=== PATIENT | male | born 1950 | race Caucasian/White ===

== ENCOUNTER 2019-02-20 15:25 | Emergency (ER) | payer MEDICARE, BC ==
--- NOTE | 2019-02-20 15:38 | ED ---
Chest Pain HPI - General Stated Complaint: Sob/chest tightness Time Seen by Provider: 02/20/19 15:30 Source: RN notes reviewed, old records reviewed - History of Present Illness Initial Comments: This is a 68-year-old male the ER for evaluation regarding blood pressure coming in for evaluation regards to chest pain. Chest pain shortness of breath episode of diaphoresis. Patient states he deathly started noticing symptoms last night that progressed into today and he was walking. Walking on especially make the symptoms worse. He has history of high blood pressure but no significant history of heart disease, stress test greater than 10 years ago. Patient has been throws ER stay without chest pain without swelling without shortness of breath. Patient denies significant current chest pain. Patient states he does feel mildly anxious to the symptoms. CBC playing golf yesterday without any difficulty. Patient didn't get infusion for his rheumatoid arthritis on Wednesday but never experienced any similar symptoms with prior infusion MD Complaint: chest pain -: days(s) Onset: during rest, during exertion Pain Location: substernal, left chest Pain Radiation: none Severity: mild Severity scale (1-10): 3 Quality: aching, heaviness Consistency: intermittent, now resolved Improves With: nothing Worsens With: exertion Anginal Symptoms: diaphoresis, dyspnea Treatments Prior to Arrival: none - Related Data Home Medications Medication Instructions Recorded Confirmed Allopurinol [Zyloprim] 300 mg PO DAILY 02/20/19 02/20/19 Folic Acid 1 mg PO DAILY 02/20/19 02/20/19 Methotrexate Sodium [Methotrexate] 25 mg PO TU 02/20/19 02/20/19 Methotrexate/Pf [Rasuvo 25 mg/0.5 25 mg SQ Q7D 02/20/19 02/20/19 ml Autoinj] Turmeric Root Extract [Turmeric] 500 mg PO BID 02/20/19 02/20/19 amLODIPine BESYLATE/BENAZEPRIL 1 cap PO DAILY 02/20/19 02/20/19 [amLODIPine BESYLATE/BENAZEPRIL 5-20 MG] predniSONE 10 mg PO DAILY 02/20/19 02/20/19 Allergies Allergy/AdvReac Type Severity Reaction Status Date / Time No Known Allergies Allergy Verified 02/20/19 16:17 Review of Systems ROS Statement: Those systems with pertinent positive or pertinent negative responses have been documented in the HPI. ROS Other: All systems not noted in ROS Statement are negative. EKG Findings - EKG Comments: EKG Findings:: EKG shows sinus rhythm rate of 84, WA 150, QRS 108, QTc 427 Past Medical History Past Medical History: Hypertension History of Any Multi-Drug Resistant Organisms: None Reported Additional Past Surgical History / Comment(s): knee Past Psychological History: No Psychological Hx Reported Smoking Status: Never smoker Past Alcohol Use History: Occasional Past Drug Use History: None Reported General Exam General appearance: alert, in no apparent distress, anxious Head exam: Present: atraumatic, normocephalic, normal inspection Eye exam: Present: normal appearance, PERRL, EOMI. Absent: scleral icterus, conjunctival injection, periorbital swelling ENT exam: Present: normal exam, mucous membranes moist Neck exam: Present: normal inspection. Absent: tenderness, meningismus, lymphadenopathy Respiratory exam: Present: normal lung sounds bilaterally. Absent: respiratory distress, wheezes, rales, rhonchi, stridor Cardiovascular Exam: Present: regular rate, normal rhythm, normal heart sounds. Absent: systolic murmur, diastolic murmur, rubs, gallop, clicks GI/Abdominal exam: Present: soft, normal bowel sounds. Absent: distended, tenderness, guarding, rebound, rigid Extremities exam: Present: normal inspection, full ROM, normal capillary refill. Absent: tenderness, pedal edema, joint swelling, calf tenderness Back exam: Present: normal inspection Neurological exam: Present: alert, oriented X3, CN II-XII intact Psychiatric exam: Present: normal affect, normal mood Skin exam: Present: warm, dry, intact, normal color. 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 ] Respiratory 26 H 18 15 Rate Blood Pressure 119/81 124/89 O2 Sat by Pulse 96 Oximetry 02/20/19 02/20/19 02/20/19 16:30 17:00 17:30 Temperature Pulse Rate 81 78 82 Pulse Rate [ Washhouse Worker ] Respiratory 18 20 16 Rate Blood Pressure 135/92 126/87 124/79 O2 Sat by Pulse 95 94 L 97 Oximetry - Reevaluation(s) Reevaluation #1: 02/20/19 17:44 Medical records reviewed Reevaluation #2: 02/20/19 17:44 She remains asymptomatic without any chest pain or shortness of breath here in the ER Reevaluation #3: 02/20/19 17:44 The patient at length regarding normal findings, normal troponin with pain greater than one day, normal EKG. 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 No history of heart disease does have history of high blood pressure. Patient states chest pain is resolved throat ER stay did submit mild anxiety attack. He feels good feels well essay he would like discharge home Disposition Clinical Impression: Chest pain Disposition: HOME SELF-CARE Condition: Undetermined Instructions (If sedation given, give patient instructions): Chest Pain (ED) Is patient prescribed a controlled substance at d/c from ED?: No Referrals: Edwardo Pollard MD [Primary Care Provider] - 1-2 days
[2019-02-20] MEDS ORDERED: SODIUM CHLORIDE 0.9% 1,000 ML IV STA (16:08)
[2019-02-20 16:23] LABS: Basophils # (A) 0.1 k/uL (0-0.2); Basophils % (A) 1 %; Eosinophils # (A) 0.1 k/uL (0-0.7); Eosinophils % (A) 1 %; HCT 48.7 % (39.0-53.0); HGB 15.8 gm/dL (13.0-17.5); Lymphocytes # (A) 2.2 k/uL (1.0-4.8); Lymphocytes % (A) 27 %; MCH 31.6 pg (25.0-35.0); MCHC 32.4 g/dL (31.0-37.0); MCV 97.3 fL (80.0-100.0); Mean Platelet Volume 8.1; Monocytes # (A) 0.4 k/uL (0-1.0); Monocytes % (A) 4 %; Neutrophils # (A) 5.5 k/uL (1.3-7.7); Neutrophils % (A) 66 %; Platelet Count 219 k/uL (150-450); RBC 5.01 m/uL (4.30-5.90); RDW 14.4 % (11.5-15.5); WBC 8.3 k/uL (3.8-10.6)
--- NOTE | 2019-02-20 16:28 | XR ---
EXAMINATION TYPE: XR chest 2V DATE OF EXAM: 02/20/2019 COMPARISON: Chest x-ray November 22, 2013. HISTORY: Chest pain and tightness. Shortness of breath. TECHNIQUE: Frontal and lateral views of the chest are obtained. FINDINGS: There is chronic parenchymal changes without suspicious focal air space opacity, pleural e ffusion, or pneumothorax seen. The cardiac silhouette size remains upper limits of normal with ather osclerotic and ectatic aorta. The osseous structures are intact. IMPRESSION: No acute cardiopulmonary process. No significant change from prior.
[2019-02-20 16:34] LABS: ALT 45 U/L (21-72); AST 30 U/L (17-59); African American GFR (CKD) >90 (>60 ml/min/1.73 sqM); Albumin 4.1 g/dL (3.5-5.0); Alkaline Phosphatase 86 U/L (38-126); Anion Gap 10 mmol/L; Blood Urea Nitrogen 23 mg/dL (9-20); Calcium 9.4 mg/dL (8.4-10.2); Carbon Dioxide 19 mmol/L (22-30); Chloride 111 mmol/L (98-107); Creatine Kinase 84 U/L (55-170); Glucose 156 mg/dL (74-99); Magnesium 2.1 mg/dL (1.6-2.3); Potassium 4.5 mmol/L (3.5-5.1); Sodium 140 mmol/L (137-145); Total Bilirubin 0.6 mg/dL (0.2-1.3); Total Protein 6.9 g/dL (6.3-8.2)
[2019-02-20 16:49] LABS: D-Dimer 0.31 mg/L FEU (<0.60); INR 0.9 (<1.2); Partial Thromboplastin Time 25.1 sec (22.0-30.0); Prothrombin Time 10.1 sec (9.0-12.0)
[2019-02-20 17:39] VITALS: RESP 16
[2019-02-20 18:34] VITALS: BP 126/80; PULSE 81; TEMP 98.2
== END 2019-02-20 18:33 | disposition home or self-care (01) ==
LOC: EC 15:25
DX: R07.89 Other chest pain (principal); R06.02 Shortness of breath; R61 Generalized hyperhidrosis; I10 Essential (primary) hypertension; M06.9 Rheumatoid arthritis, unspecified; Z79.52 Long term (current) use of systemic steroids; Z79.899 Other long term (current) drug therapy; Z53.20 Procedure and treatment not carried out because of patient's decision for unspecified reasons
CPT/HCPCS: 36415; 71046; 80053; 82550; 83690; 83735; 83880; 84484; 85025; 85379; 85610; 85730; 93005; 99285

== ENCOUNTER → 2019-03-17 | Outpatient (CLI) | payer MEDICARE, BC ==
--- NOTE | 2019-03-17 11:36 | ECHOS ---
STRESS ECHOCARDIOGRAM INDICATIONS: Hypertension BASELINE HEART RATE: 67 BASELINE BLOOD PRESSURE: 101/76 MAXIMUM HEART RATE: 136 MAXIMUM BLOOD PRESSURE: 174/55 85% MPHR: 128 100% MPHR: 150 METS: 9.7 MAXIMUM STAGE REACHED: 3 TOTAL EXERCISE TIME: 8:00 CLINICAL INFORMATION: Baseline EKG revealed sinus mechanism with isolated PVCs. Patient walked on standard Lambert protocol for 8 minutes, achieved a maximal heart rate of 136 beats per minute which is more than 85% of predicted maximal. He developed fatigue and shortness of breath but did not have any angina or arrhythmia. EKG did not reveal any ST-segment changes to indicate ischemia by EKG. The ventricular ectopy that was noted at rest disappeared with exercise. By EKG criteria, this is a negative stress test with fair exercise capacity. Baseline echo images revealed normal wall motion and wall thickening of all segments. Echo contrast Lumason was used to improve the quality of images. At peak exercise there was augmentation of different wall motion and wall thickening of all segments suggesting that there is no evidence of stress-induced ischemia on this study. IMPRESSION: 1. Fair exercise capacity with a negative stress test by EKG criteria without symptoms of angina or arrhythmia. Isolated premature ventricular contractions were noted at rest and reappeared in recovery but disappeared with exercise. 2. Normal stress echocardiogram. MMODL / IJN: [id number] /
== END | disposition home or self-care (01) ==
LOC: RADNMMAIN 09:00
PROVIDERS: ATTEND Internal Medicine
DX: R06.00 Dyspnea, unspecified (principal)
CPT/HCPCS: 93351; Q9950

== ENCOUNTER → 2019-10-13 | Outpatient (CLI) | payer MEDICARE, BC | END | disposition home or self-care (01) | LOC: LABWHC1 09:43 | PROVIDERS: ATTEND Internal Medicine | DX: R05 Cough (principal) ==

== ENCOUNTER → 2019-10-30 | Outpatient (CLI) | payer MEDICARE, BC ==
--- NOTE | 2019-10-30 15:26 | XR ---
EXAMINATION TYPE: XR chest 2V DATE OF EXAM: 10/30/2019 COMPARISON: 02/20/2019 HISTORY: 69-year-old male R05, cough TECHNIQUE: Frontal and lateral views FINDINGS: Heart normal size. Aorta and pulmonary vasculature within normal limits. Small right pleural effusion with patchy right basilar opacity is new. IMPRESSION: New small right pleural effusion with adjacent right basilar atelectasis versus infiltrate. Pneumonia with adjacent parapneumonic effusion not excluded.
== END | disposition home or self-care (01) ==
LOC: RADXRMAIN 14:29
PROVIDERS: ATTEND Internal Medicine
DX: R05 Cough (principal)
CPT/HCPCS: 71046

== ENCOUNTER → 2019-11-14 | Outpatient (CLI) | payer MEDICARE, BC ==
--- NOTE | 2019-11-14 15:35 | XR ---
EXAMINATION TYPE: XR chest special 3 views DATE OF EXAM: 11/14/2019 HISTORY: Shortness of breath. COMPARISON: None. TECHNIQUE: Single upright and decubitus views are submitted. FINDINGS: Moderate predominantly loculated right-sided pleural effusion noted. Layering component however is no jose l. Chronic elevation right hemidiaphragm. The heart is stable. Hilar and mediastinal structures are within normal limits. Degenerative changes are seen of the dorsal spine. IMPRESSION: 1. Moderate predominantly loculated right-sided pleural effusion noted. Layering component however i s noted. Chronic elevation right hemidiaphragm.
== END | disposition home or self-care (01) ==
LOC: RADXRMAIN 15:00
PROVIDERS: ATTEND Internal Medicine
DX: J90 Pleural effusion, not elsewhere classified (principal); J98.6 Disorders of diaphragm
CPT/HCPCS: 71047

== ENCOUNTER → 2019-11-15 | Outpatient (CLI) | payer MEDICARE, BC ==
[2019-11-15 13:09] LABS: HCT 46.5 % (39.0-53.0); HGB 14.4 gm/dL (13.0-17.5); MCH 28.9 pg (25.0-35.0); MCHC 30.9 g/dL (31.0-37.0); MCV 93.6 fL (80.0-100.0); Platelet Count 221 k/uL (150-450); RBC 4.97 m/uL (4.30-5.90); RDW 14.1 % (11.5-15.5); WBC 4.2 k/uL (3.8-10.6)
[2019-11-15 13:44] LABS: ALT 27 U/L (4-49); AST 55 U/L (17-59); African American GFR (CKD) >90 (>60 ml/min/1.73 sqM); Albumin 3.3 g/dL (3.5-5.0); Alkaline Phosphatase 319 U/L (38-126); Anion Gap 8 mmol/L; Blood Urea Nitrogen 17 mg/dL (9-20); Calcium 8.6 mg/dL (8.4-10.2); Carbon Dioxide 21 mmol/L (22-30); Chloride 105 mmol/L (98-107); Glucose 103 mg/dL (74-99); Non-African American GFR(CKD) 82 (>60 ml/min/1.73 sqM); Potassium 4.4 mmol/L (3.5-5.1); Sodium 134 mmol/L (137-145); Total Bilirubin 1.5 mg/dL (0.2-1.3); Total Protein 6.7 g/dL (6.3-8.2)
--- NOTE | 2019-11-15 15:29 | CT ---
EXAMINATION TYPE: CT abdomen pelvis w con DATE OF EXAM: 11/15/2019 COMPARISON: Chest x-ray 11/14/2019 HISTORY: Continued fluid collection in Abdomen, ascites, pleural effusion CT DLP: 1861.6 mGycm Automated exposure control for dose reduction was used. TECHNIQUE: Helical acquisition of images from the lung bases through the pelvis have been completed. CONTRAST: Performed with Oral Contrast and with IV Contrast, patient injected with 100 mL of Isovue 300. FINDINGS: LUNG BASES: Sizable right pleural effusion is present, there is associated atelectatic change suspect ed at the right lung base. There are air bronchograms, correlate to exclude pneumonia.. AORTA: No significant abnormality is appreciated. LIVER/GB: The liver is enlarged with a somewhat nodular contour. Gallbladder is contracted PANCREAS: No significant abnormality is seen. SPLEEN: No significant abnormality is seen. ADRENALS: No significant abnormality is seen. KIDNEYS: Bilateral parapelvic cysts are present. Perinephric fluid may be indicative of renal failure .. REPRODUCTIVE ORGANS: Prostate shows some associated calcification BOWEL: Diverticular changes present associated with the sigmoid colon, there is no bowel obstruction .. FREE AIR: No Free Air visible. ASCITES: Mild amount of ascites is present. PELVIC ADENOPATHY: None visualized. RETROPERITONEAL ADENOPATHY: There are retroperitoneal nodes about the aorta, at axial image 41, sophie nal image 67 and noted immediately anterior to the aorta shows a short axis measurement of 2 cm.. URINARY BLADDER: No significant abnormality is seen. OSSEOUS STRUCTURES: No significant abnormality is seen. IMPRESSION: CORRELATE FOR CIRRHOSIS. ASCITES AND RIGHT PLEURAL EFFUSION. RETROPERITONEAL ADENOPATHY. CORRELATE FO R POSSIBLE RENAL FAILURE.
== END | disposition home or self-care (01) ==
LOC: RADCTMAIN 12:29
PROVIDERS: ATTEND Internal Medicine
DX: J90 Pleural effusion, not elsewhere classified (principal); R18.8 Other ascites; R59.0 Localized enlarged lymph nodes
CPT/HCPCS: 80053; 85027; 74177; 36415; Q9967

== ENCOUNTER 2019-11-27 08:36 | Day surgery (SDC) | payer MEDICARE, BC ==
[2019-11-27 09:18] LABS: Mean Platelet Volume 8.9; Platelet Count 168 k/uL (150-450)
[2019-11-27 09:24] VITALS: TEMP 97.9
[2019-11-27 09:27] LABS: INR 1.2 (<1.2); Prothrombin Time 12.4 sec (9.0-12.0)
[2019-11-27 10:59] VITALS: BP 112/74; PULSE 104; RESP 16
--- NOTE | 2019-11-27 11:02 | P.PCN ---
Date of Procedure: 11/27/19 Preoperative Diagnosis: right pleural effusion Postoperative Diagnosis: right pleural effusion Procedure(s) Performed: ultrasound guided right thoracentesis Anesthesia: local Surgeon: Gaby Silva Estimated Blood Loss (ml): 0 Pathology: other (cytology, chemistrsy, cultures) Condition: stable Disposition: same day Operative Findings: large volume right pleural effusion, 1800 cc clear serous fluid removed. moderate residual effusion post procedure.
--- NOTE | 2019-11-27 11:06 | XR ---
EXAMINATION TYPE: XR chest 1V DATE OF EXAM: 11/27/2019 HISTORY: Status post right-sided thoracentesis. COMPARISON: 10/30/2019 TECHNIQUE: Single view of the chest is submitted. FINDINGS: No evidence for pneumothorax in a patient who is status post thoracentesis. Continued large right-ihsan ed pleural effusion and underlying atelectasis and/or infiltrate. There is no evidence for focal infiltrate. The heart is stable. Hilar and mediastinal structures are within normal limits. Degenerative changes are seen of the dorsal spine. IMPRESSION: 1. No evidence for pneumothorax in a patient who is status post thoracentesis. Continued large right -sided pleural effusion and underlying atelectasis and/or infiltrate.
[2019-11-27 15:15] LABS: Appearance,BF Hazy; Color,BF Yellow; Nucleated Cells, Body Fluid 255 /uL; RBC, Body Fluid 2525 /uL
[2019-11-27 15:18] LABS: Mononuclear WBC,Body Fluid 92 %; Polynuclear WBC,Body Fluid 8 %; Total Cells Counted,Body Fluid 100
--- NOTE | 2019-11-27 15:42 | US ---
EXAMINATION TYPE: US thoracentesis DATE OF EXAM: 11/27/2019 COMPARISON: CT abdomen pelvis 11/15/2019 HISTORY: Right pleural effusion. FINDINGS: Maximal barrier technique was utilized. The skin overlying a suitable pocket of fluid was localized and the overlying skin prepped and draped. Lidocaine was used for local anesthesia. Ultras ound was used for site marking. A 5 Fijian 7 cm centesis catheter with syringe was advanced into the pleural fluid collection until flash of pleural fluid was visualized. Approximately 1.8 liter(s) of serous fluid was removed. Catheter was withdrawn and hemostasis achieved. There is no immediate co mplication. The patient discharged in stable condition without complication. IMPRESSION: STATUS POST ULTRASOUND GUIDED THORACENTESIS, POST PROCEDURE CHEST X-RAY PENDING. THIS [place] OCEDURE WAS PERFORMED BY THE UNDERSIGNED.
[2019-11-27 20:51] LABS: Amylase, Fluid Source Pleural Fluid; Glucose, BF Source Pleural Fluid; Glucose, Body Fluid 102 mg/dL; LDH, Body Fluid Source Pleural Fluid; Total Protein, Body Fluid 4000 mg/dL
== END 2019-11-27 11:25 | disposition home or self-care (01) ==
LOC: RADPROMAIN 08:36
PROVIDERS: ATTEND Internal Medicine
DX: J90 Pleural effusion, not elsewhere classified (principal)
CPT/HCPCS: 32555; 36415; 71045; 82150; 82945; 83615; 84157; 85049; 85610; 87070; 87075; 87102; 87116; 87205; 87206; 88108; 88305; 89050

== ENCOUNTER 2019-12-19 08:49 | Day surgery (SDC) | payer MEDICARE, BC ==
[2019-12-19 09:29] LABS: Mean Platelet Volume 8.5; Platelet Count 155 k/uL (150-450)
[2019-12-19 09:38] LABS: INR 1.2 (<1.2); Prothrombin Time 12.4 sec (9.0-12.0)
[2019-12-19 09:41] VITALS: TEMP 97.3
[2019-12-19 10:18] VITALS: RESP 18
--- NOTE | 2019-12-19 11:12 | XR ---
EXAMINATION TYPE: XR chest 1V portable DATE OF EXAM: 12/19/2019 HISTORY: status post right thoracentesis COMPARISON: 11/27/2019 TECHNIQUE: Single view of the chest is submitted. FINDINGS: Demonstrated are scattered senescent parenchymal change. Right lower lobe infiltrate and/or atelectasis with pleural effusion. No evidence for pneumothorax st atus post thoracentesis. The heart is stable. Hilar and mediastinal structures are within normal limits. Degenerative changes are seen of the dorsal spine. IMPRESSION: 1. No evidence for pneumothorax status post thoracentesis.
[2019-12-19 11:53] VITALS: BP 119/76; PULSE 101
[2019-12-19 15:10] LABS: Appearance,BF Cloudy; Color,BF Yellow; Nucleated Cells, Body Fluid 275 /uL; RBC, Body Fluid 3445 /uL
[2019-12-19 15:19] LABS: Mononuclear WBC,Body Fluid 95 %; Polynuclear WBC,Body Fluid 4 %; Total Cells Counted,Body Fluid 100
--- NOTE | 2019-12-19 16:49 | US ---
EXAMINATION TYPE: US thoracentesis DATE OF EXAM: 12/19/2019 COMPARISON: Ultrasound thoracentesis 11/27/2019 HISTORY: Pleural effusion. NON CATEGORICAL PRESCHOOL TEACHER: Dr. Gaby Silva PROCEDURE: The procedure was discussed with the patient. The risks, complications, benefits, and alternatives we re discussed and any questions were answered. Informed consent was obtained. Preprocedure preliminary imaging demonstrated large volume right pleural effusion. Maximal barrier technique was utilized. The skin overlying a suitable pocket of fluid of the right ch est was localized and the overlying skin prepped and draped. Lidocaine was used for local anesthesia. Ultrasound was used with sterile technique. A 5FR 7 cm one-step centesis catheter was advanced into the pleural fluid collection using ultrasound guidance. Approximately 2.6 liter(s) of serous fluid wa s removed. Catheter was withdrawn and hemostasis achieved. A sterile bandage was applied. Postprocedure imaging demonstrated moderate residual pleural effusion. There is no immediate complica tion. The patient was discharged in stable condition without complication. IMPRESSION: 1. Status post ultrasound-guided right thoracentesis, with removal of 2.6 L of clear serous fluid. 2. Moderate residual right pleural effusion after thoracentesis. Patient may benefit from repeat thor acentesis procedure. 3. Postprocedure chest x-ray pending.
[2019-12-19 20:53] LABS: LDH, Body Fluid Source Pleural Fluid; Total Protein, Body Fluid 4100 mg/dL
== END 2019-12-19 11:35 | disposition home or self-care (01) ==
LOC: RADPROMAIN 08:49
PROVIDERS: ATTEND Internal Medicine
DX: J90 Pleural effusion, not elsewhere classified (principal)
CPT/HCPCS: 32555; 36415; 71045; 83615; 84157; 85049; 85610; 88108; 88305; 89050

== ENCOUNTER → 2019-12-22 | Outpatient (CLI) | payer MEDICARE, BC ==
--- NOTE | 2019-12-22 12:00 | ECHOF ---
Referral Reason:I10 hypertension, J90 pleural effusion MEASUREMENTS -------- HEIGHT: 170.2 cm WEIGHT: 92.1 kg BP: RVIDd: 3.8 cm (< 3.3) IVSd: 1.2 cm (0.6 - 1.1) LVIDd: 3.1 cm (3.9 - 5.3) LVPWd: 1.5 cm (0.6 - 1.1) IVSs: 1.8 cm LVIDs: 1.5 cm LVPWs: 1.8 cm LAESV Index (A-L): 20.70 ml/m Ao Diam: 3.1 cm (2.0 - 3.7) AV Cusp: 1.9 cm (1.5 - 2.6) MV E Alex: 0.75 m/s MV DecT: 81 ms MV A Alex: 1.08 m/s MV E/A Ratio: 0.70 RAP: 5.00 mmHg RVSP: 49.34 mmHg FINDINGS -------- Resting tachycardia (HR>100bpm). This was a technically adequate study. The left ventricular size is normal. There is moderate concentric left ventricular hypertrophy. O verall left ventricular systolic function is normal with, an EF between 60 - 65 %. The right ventricle is mild to moderately enlarged. Normal LA size by volume 22+/-6 ml/m2. The right atrial size is normal. Interatrial and interventricular septum intact. The aortic valve is trileaflet and appears structurally normal. There is no evidence of aortic regu rgitation. There is no evidence of aortic stenosis. No mitral regurgitation. [id number] tricuspid regurgitation present. There is mild to moderate pulmonary hypertension. The right ventricular systolic pressure, as measured by Doppler, is 49.34mmHg. There is no pulmonic regurgitation present. The aortic root size is normal. Normal inferior vena cava with normal inspiratory collapse consistent with estimated right atrial pre ssure of 5 mmHg. There is no pericardial effusion. CONCLUSIONS -------- 1. The left ventricular size is normal. 2. There is moderate concentric left ventricular hypertrophy. 3. Overall left ventricular systolic function is normal with, an EF between 60 - 65 %. 4. The right ventricle is mild to moderately enlarged. 5. [id number] tricuspid regurgitation present. 6. There is mild to moderate pulmonary hypertension. [employer]ATION ATTENDANT: aKrma Redd RDCS
== END | disposition home or self-care (01) ==
LOC: RADECHMAIN 10:27
PROVIDERS: ATTEND Internal Medicine
DX: I07.1 Rheumatic tricuspid insufficiency (principal); I27.20 Pulmonary hypertension, unspecified; J90 Pleural effusion, not elsewhere classified
CPT/HCPCS: 93306

== ENCOUNTER 2020-01-03 08:53 | Day surgery (SDC) | payer MEDICARE, BC ==
[2020-01-03 09:21] LABS: Mean Platelet Volume 8.4; Platelet Count 200 k/uL (150-450)
[2020-01-03 09:30] LABS: INR 1.2 (<1.2); Prothrombin Time 12.1 sec (9.0-12.0)
[2020-01-03 10:00] VITALS: RESP 18; TEMP 98.2
--- NOTE | 2020-01-03 10:41 | US ---
Ultrasound-guided therapeutic and diagnostic thoracentesis DATE OF EXAM: 01/03/2020 CLINICAL HISTORY: Pleural effusion The procedure was discussed with the patient. The risks, complications, benefits, and alternatives we re discussed and any questions were answered. Informed consent was obtained. The patient was placed supine on the ultrasound table and prepped and draped in the usual sterile fas hion. All elements of maximal barrier and sterile technique were utilized. Under ultrasound guidance, access into the pleural space was obtained, via the thoracentesis catheter system and direct ultrasound guidance. Ap proximately 2.5 liters of serous fluid was removed. The patient was stable throughout the procedure and remained stable upon discharge from Department of Radiology. IMPRESSION: 1. Successful therapeutic and diagnostic thoracentesis under ultrasound guidance.
--- NOTE | 2020-01-03 10:52 | XR ---
EXAMINATION TYPE: XR chest 1V portable DATE OF EXAM: 01/03/2020 COMPARISON: 12/19/2019 HISTORY: Post right thoracentesis TECHNIQUE: Single frontal view of the chest is obtained. FINDINGS: Interval significant improvement in the amount of fluid on the right. There is persistent consolidation likely on the basis of compressive atelectasis. Reduced inspiration is noted. No sizabl e pneumothorax. Heart size normal. IMPRESSION: 1. No pneumothorax postthoracentesis.
[2020-01-03 11:53] VITALS: BP 130/76; PULSE 109
== END 2020-01-03 11:20 | disposition home or self-care (01) ==
LOC: RADPROMAIN 08:53
PROVIDERS: ATTEND Internal Medicine
DX: J90 Pleural effusion, not elsewhere classified (principal)
CPT/HCPCS: 32555; 36415; 71045; 85049; 85610

== ENCOUNTER 2020-01-08 09:44 | Day surgery (SDC) | payer MEDICARE, BC ==
[2020-01-08 10:16] VITALS: TEMP 97.1
[2020-01-08 11:42] VITALS: RESP 16
--- NOTE | 2020-01-08 12:19 | XR ---
EXAMINATION TYPE: XR chest 1V DATE OF EXAM: 01/08/2020 CLINICAL HISTORY: Status post right thoracentesis. Right pleural effusion. TECHNIQUE: Frontal view of the chest obtained. COMPARISON: 01/03/2020 chest radiograph. FINDINGS: The cardiomediastinal silhouette is within normal limits for size. Pulmonary vasculature i s normal. No significant residual pleural effusion. There is a mild amount of pleural fluid tracking within the minor fissure. No pneumothorax. The osseous structures are intact. IMPRESSION: No significant residual pleural effusion status post right thoracentesis. No pneumothorax .
[2020-01-08 12:39] VITALS: BP 123/88; PULSE 106
--- NOTE | 2020-01-09 08:43 | US ---
EXAMINATION TYPE: US thoracentesis DATE OF EXAM: 01/08/2020 COMPARISON: Chest radiograph 01/03/2020 HISTORY: Pleural effusion. 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 Gaby Silva PROCEDURE: The procedure was discussed with the patient. The risks, complications, benefits, and alternatives we re discussed and any questions were answered. Informed consent was obtained. Preprocedure preliminary imaging demonstrated large right pleural effusion. Maximal barrier technique was utilized. The skin overlying a suitable pocket of fluid of the right ch est was localized and the overlying skin prepped and draped. Lidocaine was used for local anesthesia. Ultrasound was used with sterile technique. A 5FR 10 cm one-step centesis catheter was advanced into the pleural fluid collection using ultrasound guidance. Approximately 1.75 liter(s) of serous fluid was removed. Catheter was withdrawn and hemostasis achieved. A sterile bandage was applied. Postprocedure imaging demonstrated no significant residual pleural effusion. There is no immediate co mplication. The patient was discharged in stable condition without complication. IMPRESSION: 1. Status post ultrasound-guided right thoracentesis, with removal of 1.75 L of clear serous fluid. N o significant residual pleural effusion status post procedure. 2. Postprocedure chest x-ray pending.
== END 2020-01-08 12:35 | disposition home or self-care (01) ==
LOC: RADPROMAIN 09:44
PROVIDERS: ATTEND Internal Medicine
DX: J90 Pleural effusion, not elsewhere classified (principal)
CPT/HCPCS: 32555; 71045

== ENCOUNTER 2020-01-23 07:37 | Day surgery (SDC) | payer MEDICARE, BC ==
[2020-01-23 08:27] VITALS: RESP 16; TEMP 97.9
[2020-01-23 08:59] LABS: Mean Platelet Volume 8.2; Platelet Count 191 k/uL (150-450)
[2020-01-23 09:13] LABS: INR 1.1 (<1.2); Prothrombin Time 11.4 sec (9.0-12.0)
[2020-01-23 10:12] VITALS: BP 118/75; PULSE 95
--- NOTE | 2020-01-23 10:43 | XR ---
EXAMINATION TYPE: XR chest 1V DATE OF EXAM: 01/23/2020 COMPARISON: Chest x-ray January 08, 2020. HISTORY: Right-sided thoracentesis. TECHNIQUE: Single frontal view of the chest is obtained. FINDINGS: There is no pneumothorax after right-sided thoracentesis. Persistent low lung volumes. Int erval resolution of right lower lung linear atelectasis or trapped pleural fluid or acute The cardiac silhouette size remains within normal limits. The osseous structures are intact. IMPRESSION: No pneumothorax after right-sided thoracentesis.
--- NOTE | 2020-01-23 17:59 | US ---
EXAMINATION TYPE: US thoracentesis DATE OF EXAM: 01/23/2020 COMPARISON: Ultrasound thoracentesis 01/08/2020 HISTORY: Pleural effusion. CUPOLA REPAIRER: Dr. Gaby Silva PROCEDURE: The procedure was discussed with the patient. The risks, complications, benefits, and alternatives we re discussed and any questions were answered. Informed consent was obtained. Preprocedure preliminary imaging demonstrated moderate right pleural effusion. Maximal barrier technique was utilized. The skin overlying a suitable pocket of fluid of the right ch est was localized and the overlying skin prepped and draped. Lidocaine was used for local anesthesia. Ultrasound was used with sterile technique. A 5FR 7 cm ons-step centesis catheter was advanced into the pleural fluid collection using ultrasound guidance. Approximately 1.7 liter(s) of serous fluid wa s removed. Catheter was withdrawn and hemostasis achieved. A sterile bandage was applied. There is no immediate complication. The patient was discharged in stable condition without complicati on. IMPRESSION: 1. Status post ultrasound-guided right thoracentesis, with removal of 1.7 L of clear serous fluid. 2. Postprocedure chest x-ray pending.
== END 2020-01-23 10:45 | disposition home or self-care (01) ==
LOC: RADPROMAIN 07:37
PROVIDERS: ATTEND Internal Medicine
DX: J90 Pleural effusion, not elsewhere classified (principal)
CPT/HCPCS: 32555; 36415; 71045; 85049; 85610

== ENCOUNTER 2020-02-06 07:44 | Day surgery (SDC) | payer MEDICARE, BC ==
[2020-02-06 08:31] VITALS: TEMP 97.7
[2020-02-06 08:35] LABS: Mean Platelet Volume 7.6; Platelet Count 205 k/uL (150-450)
[2020-02-06 08:46] LABS: INR 1.1 (<1.2)
[2020-02-06 10:00] VITALS: RESP 16
--- NOTE | 2020-02-06 10:53 | XR ---
EXAMINATION TYPE: XR chest 1V DATE OF EXAM: 02/06/2020 COMPARISON: 01/23/2020 INDICATION: Postthoracentesis right side TECHNIQUE: Single frontal view of the chest is obtained. FINDINGS: The heart size is normal. The pulmonary vasculature is normal. Mild infiltrate is in the right lower lung field may be some residual atelectasis. No significant eff usion is evident. No pneumothorax is evident. IMPRESSION: 1. Mild infiltrate is in the right infrahilar region may be some residual atelectasis 2. No pneumothorax post thoracentesis right side
[2020-02-06 11:07] VITALS: BP 122/74; PULSE 81
--- NOTE | 2020-02-06 13:33 | US ---
EXAMINATION TYPE: US thoracentesis DATE OF EXAM: 02/06/2020 COMPARISON: NONE HISTORY: Pleural effusion. FINDINGS: Maximal barrier technique was utilized. The skin overlying a suitable pocket of fluid was localized and the overlying skin prepped and draped. Lidocaine was used for local anesthesia. Ultras ound was used with sterile technique. A 5 Sami catheter over guide needle was advanced into the pl eural fluid collection using ultrasound guidance and the catheter advanced, needle removed. Approxim ately 2.3 liter(s) of serous fluid was removed. Catheter was withdrawn and hemostasis achieved. The re is no immediate complication. The patient discharged in stable condition without complication. IMPRESSION: STATUS POST ULTRASOUND GUIDED THORACENTESIS, POST PROCEDURE CHEST X-RAY PENDING. THIS [place] OCEDURE WAS PERFORMED BY THE UNDERSIGNED.
== END 2020-02-06 10:35 | disposition home or self-care (01) ==
LOC: RADPROMAIN 07:44
PROVIDERS: ATTEND Internal Medicine
DX: J90 Pleural effusion, not elsewhere classified (principal); R91.8 Other nonspecific abnormal finding of lung field
CPT/HCPCS: 32555; 36415; 71045; 85049; 85610

== ENCOUNTER 2020-02-20 08:45 | Day surgery (SDC) | payer MEDICARE, BC ==
[2020-02-20 09:10] VITALS: RESP 16; TEMP 97.6
[2020-02-20 09:40] LABS: Mean Platelet Volume 7.4; Platelet Count 169 k/uL (150-450)
[2020-02-20 09:45] LABS: INR 1.1 (<1.2); Prothrombin Time 11.3 sec (9.0-12.0)
[2020-02-20 10:24] VITALS: BP 132/82; PULSE 82
--- NOTE | 2020-02-20 10:52 | XR ---
EXAMINATION TYPE: XR chest 1V portable DATE OF EXAM: 02/20/2020 COMPARISON: Right-sided x-ray 4 days ago HISTORY: Right-sided thoracentesis TECHNIQUE: Single frontal view of the chest is obtained. FINDINGS: There is improved right-sided pleural effusion after right-sided thoracentesis. No pneumot horax. No mediastinal shift. Left lung remains clear. The cardiac silhouette size remains within norm al limits. There is atherosclerotic and ectatic thoracic aorta. The osseous structures are intact. IMPRESSION: No right-sided pneumothorax after thoracentesis.
--- NOTE | 2020-02-20 11:43 | US ---
Ultrasound-guided therapeutic and diagnostic thoracentesis DATE OF EXAM: 02/20/2020 CLINICAL HISTORY: Right pleural effusion The procedure was discussed with the patient. The risks, complications, benefits, and alternatives we re discussed and any questions were answered. Informed consent was obtained. The patient was placed supine on the ultrasound table and prepped and draped in the usual sterile fas hion. All elements of maximal barrier and sterile technique were utilized. Under ultrasound guidance, access into the pleural space was obtained, via the thoracentesis catheter system and direct ultrasound guidance. Ap proximately 1.2 liters of serous fluid was removed. The patient was stable throughout the procedure and remained stable upon discharge from Department of Radiology. IMPRESSION: 1. Successful therapeutic and diagnostic thoracentesis under ultrasound guidance.
== END 2020-02-20 10:45 | disposition home or self-care (01) ==
LOC: RADPROMAIN 08:45
PROVIDERS: ATTEND Internal Medicine
DX: J90 Pleural effusion, not elsewhere classified (principal)
CPT/HCPCS: 32555; 36415; 71045; 85049; 85610

== ENCOUNTER → 2020-02-28 | Outpatient (CLI) | payer MEDICARE, BC ==
[2020-02-28 10:14] LABS: African American GFR (CKD) >90 (>60 ml/min/1.73 sqM); Blood Urea Nitrogen 29 mg/dL (9-20); Non-African American GFR(CKD) 86 (>60 ml/min/1.73 sqM)
--- NOTE | 2020-02-28 11:01 | CT ---
EXAMINATION TYPE: CT chest w con DATE OF EXAM: 02/28/2020 COMPARISON: None HISTORY: abn lung field CT DLP: 355.4 mGycm Automated exposure control for dose reduction was used. CONTRAST: CT scan of the chest is performed with IV Contrast, patient injected with 100 mL of Isovue 300. FINDINGS: LUNGS: Right-sided pleural effusion measuring 3.4 cm AP dimension. The lungs are however clear and fr ee of but distinct nodule or mass. No volume loss or focal consolidation appreciated. MEDIASTINUM: There are no greater than 1 cm hilar or mediastinal lymph nodes. No pericardial effusi on is seen. Thoracic aorta is of normal caliber. The heart is not enlarged. 1.2 cm nodular density a nterior mediastinum is nonspecific and follow-up is advised in 2-3 months. UPPER ABDOMEN: There is evidence of ascites. There is also lesion of decreased attenuation within the liver adjacent to the falciform ligament which could reflect an area of focal fat however underlying lesion is not excluded and ultrasound correlation is advised. The liver is not entirely imaged. The gallbladder appears to be contracted. There appears to be nodular hepatic contour which may reflect c irrhosis. The spleen is at the upper limits of normal at 12.9 cm. Follow-up thickening suggested. OTHER: No additional significant abnormality is seen. IMPRESSION: 1. Right-sided pleural effusion. 2. Hepatosplenomegaly with underlying cirrhotic liver disease and ascites. Hepatic lesion as discusse d requires further workup with ultrasound. 3. Small nonspecific nodular density anterior mediastinum. Follow-up in 2-3 months is advised.
== END | disposition home or self-care (01) ==
LOC: RADCTMAIN 09:28
PROVIDERS: ATTEND Internal Medicine
DX: J98.4 Other disorders of lung (principal); J90 Pleural effusion, not elsewhere classified; R91.1 Solitary pulmonary nodule
CPT/HCPCS: 82565; 84520; 71260; 36415; Q9967

== ENCOUNTER 2020-03-04 08:48 | Day surgery (SDC) | payer MEDICARE, BC ==
[2020-03-04 09:19] VITALS: TEMP 97.6
[2020-03-04 09:34] LABS: Mean Platelet Volume 7.5; Platelet Count 169 k/uL (150-450)
[2020-03-04 09:42] LABS: Prothrombin Time 10.1 sec (9.0-12.0)
--- NOTE | 2020-03-04 11:09 | XR ---
EXAMINATION TYPE: XR chest 1V DATE OF EXAM: 03/04/2020 COMPARISON: Prior chest x-ray 02/20/2020 HISTORY: Status post right thoracentesis TECHNIQUE: Single frontal view of the chest is obtained. FINDINGS: Findings are similar to prior exam. IMPRESSION: No evident complication status post right thoracentesis
[2020-03-04 11:23] VITALS: BP 117/76; PULSE 85; RESP 16
--- NOTE | 2020-03-04 12:45 | US ---
EXAMINATION TYPE: US thoracentesis DATE OF EXAM: 03/04/2020 COMPARISON: NONE HISTORY: Pleural effusion MR right. FINDINGS: Maximal barrier technique was utilized. The skin overlying a suitable pocket of fluid was localized and the overlying skin prepped and draped. Lidocaine was used for local anesthesia. Ultras ound was used with sterile technique. A 8 [place] catheter over guide needle was advanced into the pl eural fluid collection using ultrasound guidance and the catheter advanced, needle removed. Approxim ately 1.1 liter(s) of serous fluid was removed. Catheter was withdrawn and hemostasis achieved. The re is no immediate complication. The patient discharged in stable condition without complication. IMPRESSION: STATUS POST ULTRASOUND GUIDED THORACENTESIS, POST PROCEDURE CHEST X-RAY PENDING. THIS [place] OCEDURE WAS PERFORMED BY THE UNDERSIGNED.
== END 2020-03-04 11:15 | disposition home or self-care (01) ==
LOC: RADPROMAIN 08:48
PROVIDERS: ATTEND Internal Medicine
DX: J90 Pleural effusion, not elsewhere classified (principal)
CPT/HCPCS: 32555; 36415; 71045; 85049; 85610

== ENCOUNTER 2020-03-20 08:38 | Day surgery (SDC) | payer MEDICARE, BC ==
[2020-03-20 09:06] VITALS: RESP 16; TEMP 97.8
[2020-03-20 09:21] LABS: Mean Platelet Volume 7.7; Platelet Count 194 k/uL (150-450)
[2020-03-20 09:29] LABS: Prothrombin Time 10.7 sec (9.0-12.0)
[2020-03-20 10:44] VITALS: BP 135/81; PULSE 78
--- NOTE | 2020-03-20 10:56 | XR ---
EXAMINATION TYPE: XR chest 1V portable DATE OF EXAM: 03/20/2020 COMPARISON: 03/04/2020 HISTORY: Post right thoracentesis TECHNIQUE: Single frontal view of the chest is obtained. FINDINGS: There is no focal air space opacity, pleural effusion, or pneumothorax seen. The cardiac silhouette size is within normal limits. The osseous structures are intact. Subsegmental changes at the lung bases likely the basis of atelectasis. No overt failure. Heart size normal. Atherosclerotic change aorta with ectasia. IMPRESSION: No acute process.
--- NOTE | 2020-03-20 11:02 | US ---
EXAMINATION TYPE: US thoracentesis DATE OF EXAM: 03/20/2020 COMPARISON: NONE HISTORY: Pleural effusion. FINDINGS: Maximal barrier technique was utilized. The skin overlying a suitable pocket of fluid was localized and the overlying skin prepped and draped. Lidocaine was used for local anesthesia. Ultras ound was used with sterile technique. A 8 Vietnamese catheter over guide needle was advanced into the pl eural fluid collection using ultrasound guidance and the catheter advanced, needle removed. Approxim ately 0.95 liter(s) of serous fluid was removed. Catheter was withdrawn and hemostasis achieved. Th ere is no immediate complication. The patient discharged in stable condition without complication. IMPRESSION: STATUS POST ULTRASOUND GUIDED THORACENTESIS, POST PROCEDURE CHEST X-RAY PENDING. THIS MD OCEDURE WAS PERFORMED BY THE UNDERSIGNED.
== END 2020-03-20 11:00 | disposition home or self-care (01) ==
LOC: RADPROMAIN 08:38
PROVIDERS: ATTEND Internal Medicine
DX: J90 Pleural effusion, not elsewhere classified (principal)
CPT/HCPCS: 32555; 36415; 71045; 85049; 85610

== ENCOUNTER → 2020-03-27 | Outpatient (CLI) | payer MEDICARE, BC ==
--- NOTE | 2020-03-28 06:42 | MR ---
EXAMINATION TYPE: MR liver wo/w con DATE OF EXAM: 03/27/2020 COMPARISON: CT abdomen and pelvis November 15, 2019. Chest CT February 28, 2020 HISTORY: K74.60 Unspecified cirrhosis, abnormal CT. CONTRAST: Standard multiplanar, multisequence MRI departmental protocol utilizing 7.5 mL intravenous Gadavist g adolinium contrast. Imaging is performed of the abdomen focusing on the liver. FINDINGS: Liver: Liver is overall normal and stable in size with lobulated peripheral contour, finding consiste nt known underlying cirrhosis. Moderate surrounding ascites seen on current study. Exam noted subopti mal as there is artifact related to surrounding ascites. Corresponding to area of concern on recent c hest CT there is persistent cortical loss anteriorly with a peripheral 2.1 cm area of slight T2 hyper intensity that is fairly isointense on T1-weighted images. Dynamic postcontrast images show diminishe d enhancement of this area on initial images with progressive centripetal filling becoming more hyper intense in remainder of liver on more delayed images. Enhancement pattern similar to the draining hep atic veins. Findings are consistent with a hemangioma and not typical pattern for focal hepatocellula r carcinoma. Early arterial images show some geographic area of increased enhancement through the ant erior aspect of the left hepatic lobe which becomes isointense on more delayed phase images thought t o reflect transient vascular phenomenon. No suspicious enhancing lesion with washout is clearly ident ified. No biliary dilatation. Gallbladder surgically absent. Patent nondilated main portal vein. Oneal nt hepatic veins draining into IVC. Other: Only a tiny right pleural effusion on current study. Spleen remains normal in size. Fairly sev ere fat replaced atrophy of the pancreas. No concerning renal masses, parapelvic cysts mimic hydronep hrosis particularly in the left kidney. No suspicious bowel dilatation. Multilevel spurring in the sp ine. Some diverticula in the distal left colon and visualized proximal sigmoid colon. Persistent asci aspen right paracolic gutter. IMPRESSION: Lesion of concern anterior liver has MR imaging characteristics consistent with benign he mangioma. Underlying cirrhosis redemonstrated.
== END | disposition home or self-care (01) ==
LOC: RADMRIMAIN 20:35
PROVIDERS: ATTEND Internal Medicine Gastroenterology
DX: R93.2 Abnormal findings on diagnostic imaging of liver and biliary tract (principal); K74.60 Unspecified cirrhosis of liver
CPT/HCPCS: 74183; A9585

== ENCOUNTER 2020-04-02 08:36 | Day surgery (SDC) | payer MEDICARE, BC ==
[2020-04-02 09:28] VITALS: PULSE 88; RESP 18; TEMP 97.3
[2020-04-02 09:31] LABS: Mean Platelet Volume 7.4; Platelet Count 228 k/uL (150-450)
[2020-04-02 09:42] LABS: Prothrombin Time 10.3 sec (9.0-12.0)
--- NOTE | 2020-04-02 10:19 | US ---
Ultrasound-guided therapeutic and diagnostic thoracentesis DATE OF EXAM: 04/02/2020 CLINICAL HISTORY: Pleural effusion Preliminary ultrasound demonstrated only small amount pleural fluid. The patient wished to defer the procedure. IMPRESSION: 1. Deferred thoracentesis.
== END 2020-04-02 10:20 | disposition home or self-care (01) ==
LOC: RADPROMAIN 08:36
PROVIDERS: ATTEND Internal Medicine
DX: J90 Pleural effusion, not elsewhere classified (principal)
CPT/HCPCS: 36415; 76604; 85049; 85610

== ENCOUNTER → 2020-04-10 | Day surgery (SDC) | payer MEDICARE, BC ==
[~2020-04-10] MED LIST: LACTATED RINGERS 1,000 ML IV SCH; LIDOCAINE 1% (10MG/ML) FOR IV START INTRADERMA ONE; LIDOCAINE 1% INJ 10MG/ML (20 ML MDV) ONE; PROPOFOL 10 MG/ML 20 ML VIAL IV ONE
[2020-04-10 10:06] VITALS: TEMP 97
--- NOTE | 2020-04-10 11:00 | P.PCN ---
Date of Procedure: 04/10/20 Procedure(s) Performed: BRIEF HISTORY: Patient is a 69-year-old, pleasant, male scheduled for an upper endoscopy as a part of screening for esophageal varices. Patient was diagnosed with liver cirrhosis of the liver 3 months ago.. PROCEDURE PERFORMED: Esophagogastroduodenoscopy with biopsy. PREOPERATIVE DIAGNOSIS: Cirrhosis of the liver/screening for esophageal varices. IV sedation per anesthesia. PROCEDURE: After informed consent was obtained, the patient was brought into the endoscopy unit. IV sedation was administered by Anesthesia under continuous monitoring. Initially the Olympus GIF-140 video endoscope was inserted into the mouth. Esophagus intubated without any difficulty. It was gradually advanced into the stomach and duodenum and carefully examined. The bulb and the second part of the duodenum appeared normal. The scope at this time was withdrawn to the stomach, adequately insufflated with air, and upon careful examination, mucosa of the antrum had scattered erosions and biopsies were done from this area., body, cardia and the fundus appeared normal. No gastric varices seen. The scope was then withdrawn into the esophagus. The GE junction was located at 39 cm from the incisors. The esophagus appeared normal. No evidence of esophageal varices. There were no erosions or ulcerations seen and the patient tolerated the procedure well. IMPRESSION: 1. No evidence of gastric or esophageal varices. 2. Mild antral gastritis with scattered erosions. RECOMMENDATIONS: The findings of this examination were discussed with the patient as well as his family. He was advised to follow with the biopsy results. He can have a repeat upper endoscopy in 2-3 years to screen for esophageal varices.
[2020-04-10 11:06] VITALS: RESP 16
[2020-04-10 11:21] VITALS: BP 153/96; PULSE 62
== END ==
LOC: ORWHC2ENDO 09:33
PROVIDERS: ATTEND Internal Medicine Gastroenterology
DX: K29.50 Unspecified chronic gastritis without bleeding (principal); K74.60 Unspecified cirrhosis of liver; I10 Essential (primary) hypertension; F41.9 Anxiety disorder, unspecified; K21.9 Gastro-esophageal reflux disease without esophagitis; Z79.899 Other long term (current) drug therapy
CPT/HCPCS: 88305; 43239; J2001; J2704

== ENCOUNTER 2020-04-23 08:37 | Day surgery (SDC) | payer MEDICARE, BC ==
--- NOTE | 2020-04-23 12:50 | US ---
Discontinued thoracentesis HISTORY: Pleural effusion Ultrasound performed of the posterior right chest and preparation for thoracentesis. No evident fluid. IMPRESSION: Discontinued thoracentesis.
== END 2020-04-23 09:30 | disposition home or self-care (01) ==
LOC: RADPROMAIN 08:37
PROVIDERS: ATTEND Internal Medicine
DX: J90 Pleural effusion, not elsewhere classified (principal); Z53.8 Procedure and treatment not carried out for other reasons
CPT/HCPCS: 76604

== ENCOUNTER → 2020-04-25 | Outpatient (CLI) | payer BC, MEDICARE ==
--- NOTE | 2020-04-25 16:44 | CONS ---
CONSULTATION DATE OF SERVICE: 04/25/2020 This patient is a 69-year-old gentleman who has been evaluated in the sleep center for possible obstructive sleep apnea/hypopnea syndrome. HISTORY OF PRESENT ILLNESS/SLEEP-WAKE EVALUATION: Patient's usual sleep schedule is from 9 p.m. to 6 a.m. basically 7 days a week. Sometimes he has problems with falling asleep, although no TV in bedroom. He sleeps on the side position. He snores, and according to his he has episodes of stopped breathing during sleep. He wakes up from sleep 4 times, with 3 episodes of nocturia. Positive history of dry mouth at night. During the day he feels sleepiness. [place] Sleepiness Scale is significantly increased at 12. History of episodes of anxiety. PAST MEDICAL HISTORY: Positive for rheumatoid arthritis, depression, right side pleuritis, gout, liver problems. PAST SURGICAL HISTORY: Left knee arthroscopic meniscus surgery. MEDICATIONS: Allopurinol 300 mg once a day, furosemide 20 mg once a day, spironolactone 25 mg once a day, Lexapro 10 mg once a day. SOCIAL HISTORY: Negative for smoking. Alcohol consumption: None at the present time. FAMILY HISTORY: Hypertension, liver problems, diabetes, acid reflux. REVIEW OF SYSTEMS: Multiple awakenings from sleep, sleepiness during the day. PHYSICAL EXAMINATION: GENERAL: A pleasant gentleman without distress. VITAL SIGNS: BP 122/84, HR 85, RR 15, height 5 feet 6-1/2 inches, weight 172.4 pounds, body mass index 27.3, temperature 96.9, oxygen saturation at room air 97%. HEENT: PERRLA, EOMI. Evaluation of oropharynx showed tongue protrudes midline. Low position of soft palate. Mallampati IV. NECK: Supple. No JVD. Thyroid is not palpable. Neck measures 16 inches in circumference. LUNGS: Clear to percussion and to auscultation. Good air exchange. No wheezing or rhonchi. HEART: S1, S2 regular. No murmurs, gallops or rubs. ABDOMEN: Soft and nontender. Bowel sounds are present. No organomegaly appreciated. EXTREMITIES: No clubbing or cyanosis. MECHANICAL SUPERVISOR: Awake, alert, and oriented X3. Cranial nerves 2 to 7 intact. There is no fasciculation or atrophy. noted. No focal deficits observed. IMPRESSION: 1. Snoring, witnessed episodes of stopped breathing during sleep, low position of soft palate, multiple awakenings from sleep, sleepiness with [place] Sleepiness Scale 12; obstructive sleep apnea-hypopnea syndrome. 2. History of rheumatoid arthritis. 3. History of liver problems. 4. History of right . 5. History of depression. 6. Status post left knee arthroscopic meniscus surgery. PLAN: 1. Home sleep apnea test. The patient prefers to proceed with home sleep apnea test. 2. CPAP/BiPAP titration if sleep study confirms obstructive sleep apnea-hypopnea syndrome. 3. Preferable position during sleep on the side. 4. No driving if patient feels any sleepiness. 5. I will see patient for follow up visit to explain results of testing and following plan. Thank you very much for referring this patient for consultation. Sincerely, Aramis Gandhi MD, PhD, FAASM Diplomat of [place] [employer] [place] [employer] Market Consultant [facility] MMODL / IJN: [id number] /
== END | disposition home or self-care (01) ==
LOC: SLEEP 15:17
PROVIDERS: ATTEND Internal Medicine
DX: G47.33 Obstructive sleep apnea (adult) (pediatric) (principal); Z87.39 Personal history of other diseases of the musculoskeletal system and connective tissue; Z87.19 Personal history of other diseases of the digestive system; Z86.59 Personal history of other mental and behavioral disorders; Z98.890 Other specified postprocedural states; Z79.899 Other long term (current) drug therapy
CPT/HCPCS: 99211

== ENCOUNTER → 2020-09-16 | Outpatient (CLI) | payer MEDICARE, BC ==
--- NOTE | 2020-09-16 08:01 | CT ---
EXAMINATION TYPE: CT chest w con DATE OF EXAM: 09/16/2020 COMPARISON: Prior chest CT February 28, 2020 HISTORY: Lung Nodule CT DLP: 418.3 mGycm. Automated Exposure Control for Dose Reduction was Utilized. TECHNIQUE: CT scan of the thorax is performed following with IV Contrast, patient injected with 100m l mL of Isovue 300. FINDINGS: LUNGS: Interval resolution of right-sided pleural effusion. Slightly elevated left hemidiaphragm rede monstrated. No suspicious greater than 5 mm pulmonary nodules or masses. Lungs currently clear. Trach eobronchial tree is patent. MEDIASTINUM: There are no new greater than 1 cm hilar or mediastinal lymph nodes. The area of prior 1 .2 cm nodule inferior mediastinum shows residual prominent but currently 10 x 4 mm lymph node axial i mage 27. Stable more prominent but subcentimeter right pericarinal lymph nodes axial image 26 . No c ardiomegaly or pericardial effusion is seen. Moderate to severe three-vessel coronary artery calcifi cation and/or stents. OTHER: Moderate generalized fat replaced atrophy of pancreas. Somewhat contracted gallbladder. Slight scoliotic curvature. Visualized liver heterogeneously hypodense consistent with fatty infiltration a nd/or underlying hepatocellular disease. No intra-abdominal ascites on current study. IMPRESSION: No suspicious residual or new nodules or thoracic adenopathy.
== END | disposition home or self-care (01) ==
LOC: RADCTMAIN 07:19
PROVIDERS: ATTEND Internal Medicine
DX: C34.90 Malignant neoplasm of unspecified part of unspecified bronchus or lung (principal)
CPT/HCPCS: 71260; Q9967

== ENCOUNTER → 2021-01-21 | Outpatient (CLI) | payer MEDICARE, BC ==
--- NOTE | 2021-01-21 14:52 | US ---
EXAMINATION TYPE: US liver DATE OF EXAM: 01/21/2021 COMPARISON: MR, CT CLINICAL HISTORY: K74.60 Unspecified cirrhosis of liver. Cirrhosis of the liver. EXAM MEASUREMENTS: Liver Length: 13.6 cm Gallbladder Wall: 0.24 cm CBD: 0.35 cm Right Kidney: 10.2 x 6.4 x 5.4 cm Very limited due to gas and patient body habitus. Pancreas: Obscured. Liver: Limited. Increased echogenicity. Appears coarse in echotexture. Gallbladder: Limited, no abnormalities seen at this time. Evidence for sonographic Ortiz's sign: No CBD: Portions seen appear wnl. Right Kidney: No hydronephrosis or masses seen IMPRESSION: 1. Visualized abdomen ultrasound is unremarkable.
== END | disposition home or self-care (01) ==
LOC: RADUSWWP 08:42
PROVIDERS: ATTEND Internal Medicine Gastroenterology
DX: K74.60 Unspecified cirrhosis of liver (principal)
CPT/HCPCS: 76705

== ENCOUNTER → 2021-12-04 | Outpatient (CLI) | payer MEDICARE, BC ==
--- NOTE | 2021-12-04 09:10 | US ---
EXAMINATION TYPE: US liver DATE OF EXAM: 12/04/2021 COMPARISON: CT chest 09/16/2020, MR liver 03/27/2020 CLINICAL HISTORY: K74.60 CIRRHOSIS OF LIVER. Abnormal labs. EXAM MEASUREMENTS: Liver Length: 15.3 cm Gallbladder Wall: 0.2 cm Right Kidney: 11.1 x 5.8 x 5.2 cm Pancreas: Obscured by bowel gas Liver: Heterogenous and coarse. No evidence of mass. Gallbladder: Echogenic foci. Unable to visualized GB LLD due to bowel gas. Evidence for sonographic Ortiz's sign: Neg CBD: Obscured by overlying bowel gas Right Kidney: No hydronephrosis or masses seen IMPRESSION: 1. Hepatic cirrhosis similar to prior MRI. No ultrasound evidence for mass. 2. Biliary sludge/cholelithiasis.
== END | disposition home or self-care (01) ==
LOC: RADUSWWP 08:01
PROVIDERS: ATTEND Internal Medicine Gastroenterology
DX: K74.60 Unspecified cirrhosis of liver (principal); K80.20 Calculus of gallbladder without cholecystitis without obstruction
CPT/HCPCS: 76705

== ENCOUNTER → 2022-09-08 | Outpatient (CLI) | payer MEDICARE, BC | END | disposition home or self-care (01) | LOC: RADUSWWP 09:11 | PROVIDERS: ATTEND Internal Medicine Gastroenterology | DX: Z53.9 Procedure and treatment not carried out, unspecified reason (principal) ==

== ENCOUNTER → 2022-09-08 | Outpatient (CLI) | payer MEDICARE, BC ==
--- NOTE | 2022-09-08 10:55 | US ---
EXAMINATION TYPE: US abd limited kidneys/bladder DATE OF EXAM: 09/08/2022 COMPARISON: US 2021, CT 2019 CLINICAL INDICATION: Male, 72 years old with history of C67.9 BLADDER CANCER; History of bladder and prostate CA TECHNIQUE: Multiple sonographic images of the right upper quadrant, bilateral kidneys, and bladder ar e obtained. FINDINGS: EXAM MEASUREMENTS: Liver Length: 15.8 cm Gallbladder Wall: 0.3 cm CBD: 0.3 cm Right Kidney: 10.8 x 6.0 x 4.9 cm Left Kidney: 11.5 x 4.6 x 5.4 cm Pancreas: obscured by overlying midline bowel gas Liver: course echotexture Gallbladder: echogenic foci, limited by overlying bowel gas CBD: visualized portions wnl, limited by overlying bowel gas Right Kidney: wnl Left Kidney: wnl Bladder: not fully distended AUTOMOTIVE SERVICES MANAGER NOTES: IMPRESSION: 1. Hepatic steatosis. 2. Suspect complicated cholelithiasis
== END | disposition home or self-care (01) ==
LOC: RADUSWWP 09:11
PROVIDERS: ATTEND Urology
DX: C67.9 Malignant neoplasm of bladder, unspecified (principal); K76.0 Fatty (change of) liver, not elsewhere classified; Z85.46 Personal history of malignant neoplasm of prostate
CPT/HCPCS: 76705; 76770

== ENCOUNTER 2022-12-18 13:11 | Day surgery (SDC) | payer MEDICARE, BC ==
[2022-12-14 09:22] VITALS: BMI 32.8
[~2022-12-18 13:11] MED LIST changes: -LIDOCAINE 1% (10MG/ML) FOR IV START INTRADERMA ONE; +LIDOCAINE 1% (10MG/ML) FOR IV START INTRADERMA PRN; -LIDOCAINE 1% INJ 10MG/ML (20 ML MDV) ONE; +ONDANSETRON 4 MG/2 ML VIAL IVP PRN; -PROPOFOL 10 MG/ML 20 ML VIAL IV ONE
[2022-12-18 13:47] VITALS: TEMP 97.2
[2022-12-18] MEDS ORDERED: PROPOFOL 10 MG/ML 20 ML VIAL IV ONE (14:24)
--- NOTE | 2022-12-18 14:44 | P.PCN ---
Date of Procedure: 12/18/22 Procedure(s) Performed: BRIEF HISTORY: Patient is a 72-year-old pleasant white male scheduled for an elective colonoscopy as a part of screening for colon cancer. PROCEDURE PERFORMED: Colonoscopy with snare polypectomy. PREOPERATIVE DIAGNOSIS: Screening for colon cancer. IV sedation per Anesthesia. PROCEDURE: After informed consent was obtained, the patient, was brought into the endoscopy unit. IV sedation was administered by Anesthesia under continuous monitoring. Digital rectal examination was normal. Initially the Olympus CF-160 flexible video colonoscope was then inserted in the rectum, gradually advanced into the cecum without any difficulty. Careful examination was performed as the scope was gradually being withdrawn. Ileocecal valve and the appendiceal orifice were visualized and appeared normal. Prep was excellent. Mucosa of the cecum, appeared normal. Ascending colon there was a 1 cm polyp removed by snare polypectomy. In the descending colon there was a 4 mm and 7 mm polyp removed by snare polypectomy. Rest of the ascending colon, transverse colon, descending colon, sigmoid colon, and rectum appeared normal. Scattered sigmoid diverticulosis seen. Retroflexion was performed in the rectum and no lesions were seen. The patient tolerated the procedure well. IMPRESSION: 1 cm ascending colon polyp status post snare polypectomy 4 mm and a 7 mm descending colon polyp status post polypectomy Scattered sigmoid diverticulosis RECOMMENDATIONS: Findings of this examination were discussed with the patient as well as his family.. He was advised to follow with the biopsy results. If the biopsy reveals adenoma he can have a repeat colonoscopy in 3 years.
[2022-12-18 14:54] VITALS: RESP 16
[2022-12-18 15:00] VITALS: BP 122/71; PULSE 58
== END 2022-12-18 15:20 ==
LOC: ORWHC2ENDO 13:11
PROVIDERS: ATTEND Internal Medicine Gastroenterology
DX: Z12.11 Encounter for screening for malignant neoplasm of colon (principal); D12.2 Benign neoplasm of ascending colon; D12.4 Benign neoplasm of descending colon; K57.30 Diverticulosis of large intestine without perforation or abscess without bleeding; I10 Essential (primary) hypertension; F41.9 Anxiety disorder, unspecified; Z87.891 Personal history of nicotine dependence; Z79.899 Other long term (current) drug therapy
CPT/HCPCS: 88305; 45385; J2704

== ENCOUNTER → 2023-02-22 | Outpatient (CLI) | payer MEDICARE, BC ==
--- NOTE | 2023-02-22 10:22 | US ---
EXAMINATION TYPE: US liver DATE OF EXAM: 02/22/2023 COMPARISON: US CLINICAL INDICATION: Male, 72 years old with history of K74.60 CIRRHOSIS OF LIVER; Cirrhosis TECHNIQUE: Multiple sonographic images of the right upper quadrant are obtained. FINDINGS: EXAM MEASUREMENTS: Liver Length: 14.7 cm Gallbladder Wall: 0.6 cm CBD: 0.4 cm Right Kidney: 10.9 x 5.8 x 5.8 cm Pancreas: Obscured by bowel gas Liver: Heterogeneous, coarse echotexture Gallbladder: Multiple gallstones with thickened wall Evidence for sonographic Ortiz's sign: No CBD: wnl Right Kidney: Possible, vague hypoechoic area mid/lower pole= 1.7 x 1.2 x 1.0 cm ?lobulation vs. mas s IMPRESSION: 1. Hepatic cirrhosis with no suspicious observation. 2. Cholelithiasis. 3. Hypoechoic area within the renal cortex which is indeterminate and ultrasound further evaluation with CT or MRI renal mass protocol is recommended.
== END | disposition home or self-care (01) ==
LOC: RADUSWWP 09:24
PROVIDERS: ATTEND Internal Medicine Gastroenterology
DX: K74.60 Unspecified cirrhosis of liver (principal); K80.20 Calculus of gallbladder without cholecystitis without obstruction
CPT/HCPCS: 76705

== ENCOUNTER → 2023-02-24 | Outpatient (CLI) | payer MEDICARE, BC ==
--- NOTE | 2023-02-25 18:50 | CA ---
Transthoracic Echo Report Name: Luther Kerns Age: 72 Gender: M : 1950 Exam Date: 02/24/2023 17:39 Exam Location: [facility] Ht (in): 67 Wt (lb): 216 Ordering Physician: Castro Ordoñez MD Attending/Referring Phys: Senior Quantity Surveyor Grecia Powell RDCS Procedure CPT: Indications: Z01.818 Chemo Cardiac Hx: Technical Quality: Fair Contrast 1: Total Dose (mL): Contrast 2: Total Dose (mL): MEASUREMENTS (Male / Female) Normal Values 2D ECHO LV Diastolic Diameter PLAX 4.7 cm 4.2 - 5.9 / 3.9 - 5.3 cm LV Systolic Diameter PLAX 3.3 cm IVS Diastolic Thickness 1.4 cm 0.6 - 1.0 / 0.6 - 0.9 cm LVPW Diastolic Thickness 1.2 cm 0.6 - 1.0 / 0.6 - 0.9 cm LV Relative Wall Thickness 0.5 RV Internal Dim ED PLAX 3.6 cm LA Systolic Diameter LX 3.5 cm 3.0 - 4.0 / 2.7 - 3.8 cm LV Diastolic Volume MOD BP 100.8 cm??? 67 - 155 / 56 - 104 cm??? LV Systolic Volume MOD BP 44.0 cm??? 22 - 58 / 19 - 49 cm??? LV Ejection Fraction MOD BP 56.3 % >= 55 % LV Cardiac Index MOD BP 1764.5 cm???/min???m??? LV Diastolic Volume MOD 4C 113.2 cm??? LV Systolic Volume MOD 4C 48.0 cm??? LV Ejection Fraction MOD 4C 57.6 % LV Cardiac Index MOD 4C 2024.5 cm???/min???m??? LV Diastolic Length 4C 8.5 cm LV Systolic Length 4C 6.7 cm LV Diastolic Volume MOD 2C 88.8 cm??? LV Systolic Volume MOD 2C 40.4 cm??? LV Ejection Fraction MOD 2C 54.4 % LV Cardiac Index MOD 2C 1501.8 cm???/min???m??? LV Diastolic Length 2C 8.3 cm LV Systolic Length 2C 6.8 cm LA Volume 51.3 cm??? 18 - 58 / 22 - 52 cm??? LA Volume Index 23.4 cm???/m??? 16 - 28 cm???/m??? M-MODE Aortic Root Diameter MM 4.0 cm MV E Point Septal Separation 0.7 cm AV Cusp Separation MM 2.1 cm DOPPLER AV Peak Velocity 112.9 cm/s AV Peak Gradient 5.1 mmHg MV Area PHT 2.0 cm??? Mitral E Point Velocity 54.2 cm/s Mitral A Point Velocity 84.7 cm/s Mitral E to A Ratio 0.6 MV Deceleration Time 370.1 ms MV E' Velocity 5.1 cm/s Mitral E to MV E' Ratio 10.7 TR Peak Velocity 226.7 cm/s TR Peak Gradient 20.6 mmHg Right Ventricular Systolic Press 25.1 mmHg FINDINGS Left Ventricle Left ventricular ejection fraction is estimated at 55-60 %. Left ventricular cavity size normal. Mildly increased septal wall thickness. Right Ventricle Mild right ventricular dilatation. Right ventricular systolic pressure within normal limits. Right Atrium Normal right atrial size. Left Atrium Normal left atrial size. Mitral Valve Structurally normal mitral valve. No mitral stenosis, regurgitation or prolapse. Aortic Valve Trileaflet aortic valve. No aortic valve stenosis or regurgitation. Tricuspid Valve Structurally normal tricuspid valve. Mild tricuspid regurgitation. Pulmonic Valve Pulmonic valve not well visualized. Trace to mild pulmonic regurgitation. Pericardium No pericardial effusion. Aorta Mild aortic dilatation at the level of the sinuses of valsalva 40 mm CONCLUSIONS Left ventricular systolic function of the lower limits of normal Mild RV enlargement Previewed by: Dr. Adriel Bonilla MD (Electronically Signed) Final Date: 25 February 2023 18:50
== END | disposition home or self-care (01) ==
LOC: RADECHMAIN 17:36
PROVIDERS: ATTEND Internal Medicine Hematology & Oncology
DX: Z01.818 Encounter for other preprocedural examination (principal); I51.7 Cardiomegaly
CPT/HCPCS: 93306

== ENCOUNTER 2023-03-04 10:40 | Day surgery (SDC) | payer MEDICARE, BC ==
[~2023-03-04 10:40] MED LIST changes: +ACETAMINOPHEN TAB 500 MG TAB PO PRN; +HEPARIN SODIUM,PORCINE/PF 5,000 UNIT/0.5 ML SYRINGE SQ PRN; +MIDAZOLAM 2 MG/2 ML VIAL IV PRN; -ONDANSETRON 4 MG/2 ML VIAL IVP PRN; +Pre Op ABX Message 1 EACH MISC MISCELLANE ONE; +fentaNYL (PF) 50 MCG/ML 2 ML AMP IVP PRN
[2023-03-04 11:18] VITALS: RESP 16
[2023-03-04] MEDS ORDERED: ONDANSETRON 4 MG/2 ML VIAL ONE (11:22)
[2023-03-04] MEDS ORDERED: DEXAMETHASONE SOD PHOSPHATE 4 MG/ML 1 ML VIAL IVP ONE (11:32)
[2023-03-04] MEDS ORDERED: LIDOCAINE (PF) 10 MG/ML 2 ML VIAL SQ ONE ×2 (12:28→12:58)
[2023-03-04] MEDS ORDERED: PROPOFOL 10 MG/ML 20 ML VIAL IV ONE (12:36)
[2023-03-04] MEDS ORDERED: MIDAZOLAM 2 MG/2 ML VIAL ONE (12:36)
[2023-03-04] MEDS ORDERED: fentaNYL (PF) 50 MCG/ML 2 ML AMP ONE (12:36)
[2023-03-04] MEDS ORDERED: ePHEDrine 50 MG/ML 1 ML VIAL ONE (12:36)
[2023-03-04] MEDS ORDERED: LIDOCAINE 1% INJ 10MG/ML (20 ML MDV) ONE (12:36)
[2023-03-04] MEDS ORDERED: SODIUM CHLORIDE 0.9% 100 ML with ceFAZolin 2,000 MG IV ONE ×2 (12:40)
--- NOTE | 2023-03-04 12:42 | P.GSHP ---
History of Present Illness H&P Date: 03/04/23 Chief Complaint: Lymphoma 72-year-old male here for Port-A-Cath placement. Patient was recently diagnosed with lymphoma. Patient will be starting chemotherapy in the near future. No history of previous Port-A-Cath. Past Medical History Past Medical History: Cancer, GERD/Reflux, Hypertension, Liver Disease, Rheumatoid Arthritis (RA) Additional Past Medical History / Comment(s): gout, fatty liver, mild ascites, large volume pleural effusion on right. 04/02/20 no pleural effusion, bladder cancer, prostate cancer psa .060 Radiation for prostate. 2020, colonoscopy, egd History of Any Multi-Drug Resistant Organisms: None Reported Past Surgical History: Appendectomy, Orthopedic Surgery Additional Past Surgical History / Comment(s): knee, meniscus torn (left) multiple large volume right side thoracentesis Past Anesthesia/Blood Transfusion Reactions: No Reported Reaction Additional Past Anesthesia/Blood Transfusion Reaction / Comment(s): no blood transfusion Smoking Status: Former smoker - Past Family History Mother Family Medical History: No Reported History Additional Family Medical History / Comment(s): pt does not know his family history Medications and Allergies Home Medications Medication Instructions Recorded Confirmed Type Cholecalciferol [Vitamin D3] 400 unit PO DAILY@1200 02/06/20 03/04/23 History Vitamin E (Dl,Tocopheryl Acet) 1,000 unit PO DAILY 02/06/20 03/04/23 History [Vitamin E] Escitalopram Oxalate [Lexapro] 10 mg PO HS 03/04/20 03/04/23 History Furosemide [Lasix] 20 mg PO QAM 03/20/20 03/04/23 History Spironolactone 25 mg PO DAILY 12/14/22 03/04/23 History Tamsulosin HCl [Flomax] 0.4 mg PO DAILY 12/14/22 03/04/23 History Omeprazole 40 mg PO DAILY 02/08/23 03/04/23 History Allergies Allergy/AdvReac Type Severity Reaction Status Date / Time No Known Allergies Allergy Verified 03/04/23 11:01 Surgical - Exam Vital Signs Temp Pulse Resp BP Pulse Ox 97.9 F 74 16 136/90 97 03/04/23 11:08 03/04/23 11:08 03/04/23 11:08 03/04/23 11:08 03/04/23 11:08 Physical exam: General: Well-developed, well-nourished HEENT: Normocephalic, sclerae nonicteric Abdomen: Nontender, nondistended Extremities: No edema Neuro: Alert and oriented Results - Labs 03/04/23 11:54 Diabetes panel 03/04/23 Range/Units 11:54 Potassium 4.4 (3.5-5.1) mmol/L Pituitary panel 03/04/23 Range/Units 11:54 Potassium 4.4 (3.5-5.1) mmol/L Adrenal panel 03/04/23 Range/Units 11:54 Potassium 4.4 (3.5-5.1) mmol/L Assessment and Plan (1) Lymphoma Narrative/Plan: Will proceed with Port-A-Cath placement at this time. Risks of bleeding, infection, DVT, pneumothorax, catheter malfunction, anesthesia related complications were discussed. The patient understands and wishes to proceed. Current Visit: Yes Status: Acute Code(s): C85.90 - NON-HODGKIN LYMPHOMA, UNSPECIFIED, UNSPECIFIED SITE SNOMED Code(s): 169688240
[2023-03-04] MEDS ORDERED: ACETAMINOPHEN TAB 325 MG TAB PO PRN (13:21)
[2023-03-04] MEDS ORDERED: NALOXONE 0.4 MG/ML 1 ML VIAL IV PRN (13:21)
--- NOTE | 2023-03-04 13:29 | P.OP ---
Date of Procedure: 03/04/23 Procedure(s) Performed: PREOPERATIVE DIAGNOSIS: Lymphoma POSTOPERATIVE DIAGNOSIS: Same PROCEDURE: Port-A-Cath placement with fluoroscopic and ultrasound guidance SURGEON: Melissa EBL: Minimal ANESTHESIA: General COMPLICATIONS: None OPERATIVE PROCEDURE: Patient was brought and placed on the operative table in the supine position. The patient was placed under general anesthesia at that time. The chest and neck were prepped and draped in usual sterile fashion. The ultrasound probe was used to identify the location of the right internal jugular vein. The skin was localized with lidocaine. The Seldinger needle was advanced into the IJ under ultrasound guidance. The wire was advanced through the needle under fluoroscopic guidance into the superior vena cava. A port pocket was created in the right infraclavicular location. The catheter was tunneled from the wire entrance site to the port pocket. The port was then connected to the catheter. The dilator introducer was threaded over the guidewire. The guidewire and dilator were then removed. The catheter was advanced through the introducer and introducer was then removed. The tip was seen to be in the right atrial junction via fluoroscopy. A picture of the radiograph showing the tip of the catheter was taken. Port was flushed with both saline and a Hep-Lock solution. There was good flow both in and out of the port. The port was sutured in underlying tissues using 3-0 silk sutures. The subcutaneous tissues were reapproximated using 3-0 Vicryl sutures and the skin at both locations using 4-0 Monocryl sutures. Skin glue and sterile dressings then applied. DISPOSITION: Stable to recovery room
[2023-03-04 13:39] VITALS: TEMP 97.1
--- NOTE | 2023-03-04 14:25 | XR ---
EXAMINATION TYPE: XR chest 1V confirm line [facility] DATE OF EXAM: 03/04/2023 2:07 PM CLINICAL INDICATION:Male, 72 years old with history of Check line; COMPARISON: Chest radiographs from 03/20/2020 TECHNIQUE: XR chest 1V confirm line [facility] Frontal view of the chest. FINDINGS: Lungs/Pleura: There is no evidence of pleural effusion, focal consolidation, or pneumothorax. Pulmonary vascularity: Unremarkable. Heart/mediastinum: Cardiomediastinal silhouette is unremarkable. Musculoskeletal: No acute osseous pathology. Other findings: None Lines/Tubes: Right internal jugular central venous catheter with distal tip at the superior vena cava. IMPRESSION: Right central venous catheter appears intact with tip terminating in the superior vena cava.
--- NOTE | 2023-03-04 15:12 | FL ---
Intraoperative/procedural fluoroscopic services were provided. Total fluoroscopy time is 4.5 seconds with a total of 2 submitted images to PACS. Please see the operative/procedural note for further deta ils. DAP: 0.3934 mGym2
[2023-03-04 15:13] VITALS: BP 129/71; PULSE 99
[2023-03-04] MEDS ORDERED: KETOROLAC 15 MG/ML 1 ML VIAL IVP SCH (18:00)
== END 2023-03-04 15:28 | disposition home or self-care (01) ==
LOC: OR 10:40
PROVIDERS: ATTEND Surgery
DX: C85.90 Non-Hodgkin lymphoma, unspecified, unspecified site (principal); I10 Essential (primary) hypertension; K21.9 Gastro-esophageal reflux disease without esophagitis; K76.0 Fatty (change of) liver, not elsewhere classified; M06.9 Rheumatoid arthritis, unspecified; Z87.891 Personal history of nicotine dependence; Z90.49 Acquired absence of other specified parts of digestive tract; Z79.899 Other long term (current) drug therapy
CPT/HCPCS: 84132; 77001; 36561; C1788; J2250; J2001 ×2; J1100; J2405; J0690; J3010; J1642; J2704; J1644

== ENCOUNTER → 2023-03-09 | Outpatient (CLI) | payer MEDICARE, BC ==
--- NOTE | 2023-03-09 14:56 | CT ---
EXAMINATION TYPE: CT sinus wo con CT DLP: 459.10 mGycm, Automated exposure control for dose reduction was used. DATE OF EXAM: 03/09/2023 2:26 PM COMPARISON: 02/04/2010 CLINICAL INDICATION:Male, 72 years old with history of J32.0 CHRONIC MAXILLARY SINUSITIS; , Chronic m axillary sinusitis TECHNIQUE: Multiple thin axial images were obtained through the paranasal sinuses without the use of IV contrast. Additional coronal and sagittal reformatted images were submitted for evaluation. Contrast used: none Oral contrast used: none FINDINGS: Frontal sinuses: Normally developed and aerated. Frontal Recess: Clear Maxillary Sinuses: Normally developed and aerated. There is minimal mucosal thickening along the righ t lesser extent left maxillary sinuses. Maxillary Infundibula(OMC): Mild mild narrowing secondary to mucosal thickening. Ethmoid sinuses: Normally developed and aerated. Ethmoidal notch: Unprotected bilateral anterior ethm oidal arteries. Sphenoid sinuses: Normally developed and aerated. There is sphenoid sinus pneumatization without evid ence of dehiscence. No dehiscence of carotid canal. No evidence of optic nerve dehiscence within the sphenoid sinus. Sphenoethmoidal recesses: Clear. Nasal septum: Deviated slightly right anteriorly. With spurring Nasal Turbinates: Within normal limits. Mastoid air cells & middle ears: The air cells are clear. The middle ears are grossly unremarkable. Modified Soft tissues & Brain: Partially seen without gross abnormality. Bilaterally aphakia. Falx ce rebra a lipoma. Other: Atherosclerosis of the carotid siphons bilaterally. Cribriform plate demonstrates symmetric Keros classification type 2 cribriform plate. No evidence of bony dehiscence of skull base. Lamina papyracea is intact without evidence of remote orbital fracture or orbital prolapse into the e thmoid sinus. IMPRESSION: 1. No significant mucosal sinus disease. 2. The ostiomeatal units, frontonasal and sphenoethmoidal recesses are patent. Mild narrowing of the ostiomeatal complex's.
== END | disposition home or self-care (01) ==
LOC: RADCTMAIN 14:05
PROVIDERS: ATTEND Otolaryngology
DX: J32.0 Chronic maxillary sinusitis (principal); J34.89 Other specified disorders of nose and nasal sinuses
CPT/HCPCS: 70486

== ENCOUNTER 2023-03-20 13:55 | Inpatient (IN) | payer MEDICARE, BC ==
[2023-03-20] MEDS ORDERED: ACETAMINOPHEN TAB 500 MG TAB PO STA (14:36)
--- NOTE | 2023-03-20 15:24 | XR ---
EXAMINATION TYPE: XR chest 2V DATE OF EXAM: 03/20/2023 COMPARISON: 03/04/2023 HISTORY: Shortness of breath and fever TECHNIQUE: Frontal and lateral views of the chest are obtained. FINDINGS: There is no focal air space opacity, pleural effusion, or pneumothorax seen. The cardiac silhouette size is within normal limits. There is a Mediport catheter tip in the SVC/RA junction. The osseous structures are intact. IMPRESSION: No acute cardiopulmonary process.
[2023-03-20 15:35] LABS: Partial Thromboplastin Time 25.6 sec (22.0-30.0); Prothrombin Time 11.3 sec (10.0-12.5)
--- NOTE | 2023-03-20 15:37 | ED ---
Fever HPI - General Chief Complaint: Fever Stated Complaint: ABNORMAL LABS Time Seen by Provider: 03/20/23 14:20 Source: patient, RN notes reviewed Mode of arrival: ambulatory Limitations: no limitations - History of Present Illness Initial Comments: 72-year-old male presents emergency Department chief complaint of fever. Patient states fever started yesterday. Patient states that he received chemotherapy for his lymphoma 8 days ago. He states he had a chest port placed by Dr. Torres patient states that he has mild congestion otherwise no other com plaints states he does have body aches denies cough, chest pain, shortness breath, headache, dizziness, dysuria no sick contacts. Patient has not received any acetaminophen he did take some Aleve last night. - Related Data Home Medications Medication Instructions Recorded Confirmed Cholecalciferol [Vitamin D3] 400 unit PO DAILY@1200 02/06/20 03/04/23 Vitamin E (Dl,Tocopheryl Acet) 1,000 unit PO DAILY 02/06/20 03/04/23 [Vitamin E] Escitalopram Oxalate [Lexapro] 10 mg PO HS 03/04/20 03/04/23 Furosemide [Lasix] 20 mg PO QAM 03/20/20 03/04/23 Spironolactone 25 mg PO DAILY 12/14/22 03/04/23 Tamsulosin HCl [Flomax] 0.4 mg PO DAILY 12/14/22 03/04/23 Omeprazole 40 mg PO DAILY 02/08/23 03/04/23 Allergies Allergy/AdvReac Type Severity Reaction Status Date / Time No Known Allergies Allergy Verified 03/20/23 14:18 Review of Systems ROS Statement: Those systems with pertinent positive or pertinent negative responses have been documented in the HPI. ROS Other: All systems not noted in ROS Statement are negative. Past Medical History Past Medical History: Cancer, GERD/Reflux, Hypertension, Liver Disease, Rheumatoid Arthritis (RA) Additional Past Medical History / Comment(s): gout, fatty liver, mild ascites, large volume pleural effusion on right. 04/02/20 no pleural effusion, bladder cancer, prostate cancer psa .060 Radiation for prostate. 2020, colonoscopy, egd History of Any Multi-Drug Resistant Organisms: None Reported Past Surgical History: Appendectomy, Orthopedic Surgery Additional Past Surgical History / Comment(s): knee, meniscus torn (left) multiple large volume right side thoracentesis Past Anesthesia/Blood Transfusion Reactions: No Reported Reaction Additional Past Anesthesia/Blood Transfusion Reaction / Comment(s): no blood transfusion Past Psychological History: Anxiety Smoking Status: Former smoker Past Alcohol Use History: None Reported Past Drug Use History: None Reported - Past Family History Mother Family Medical History: No Reported History Additional Family Medical History / Comment(s): pt does not know his family history General Exam Limitations: no limitations General appearance: alert, in no apparent distress Head exam: Present: atraumatic, normocephalic, normal inspection Eye exam: Present: normal appearance, PERRL, EOMI. Absent: scleral icterus, conjunctival injection, periorbital swelling ENT exam: Present: normal exam, normal oropharynx, mucous membranes moist Neck exam: Present: normal inspection, full ROM. Absent: tenderness, meningismus, lymphadenopathy Respiratory exam: Present: normal lung sounds bilaterally. Absent: respiratory distress, wheezes, rales, rhonchi, stridor Cardiovascular Exam: Present: regular rate, normal rhythm, normal heart sounds. Absent: systolic murmur, diastolic murmur, rubs, gallop, clicks GI/Abdominal exam: Present: soft, normal bowel sounds. Absent: distended, tenderness, guarding, rebound, rigid Neurological exam: Present: alert, oriented X3, CN II-XII intact, reflexes normal. Absent: motor sensory deficit Skin exam: Present: warm, dry, intact, normal color. Absent: rash Course Vital Signs 03/20/23 03/20/23 14:16 14:48 Temperature 102.3 F H Pulse Rate 87 Respiratory 20 18 Rate Blood Pressure 117/68 O2 Sat by Pulse 97 Oximetry Medical Decision Making - Medical Decision Making Was pt. sent in by a medical professional or institution (, PA, DEMOLITIONIST, urgent care, hospital, or residential...) When possible be specific @ -Oncologist Did you speak to anyone other than the patient for history (EMS, parent, family, police, friend...)? What history was obtained from this source @ -No Did you review nursing and triage notes (agree or disagree)? Why? @ -I reviewed and agree with nursing and triage notes Were old charts reviewed (outside hosp., previous admission, EMS record, old EKG, old radiological studies, urgent care reports/EKG's, residential records)? Report findings @ -No old charts were reviewed Differential Diagnosis (chest pain, altered mental status, abdominal pain women, abdominal pain men, vaginal bleeding, weakness, fever, dyspnea, syncope, headache, dizziness, GI bleed, back pain, seizure, CVA, palpatations, mental health, musculoskeletal)? @ -[Differential Fever: Pneumonia, viral URI, endocarditis, myocarditis, pericarditis, otitis, sinusitis, peritonsillar Abscess, retropharyngeal Abscess, epiglottitis, peritonitis, appendicitis, Tabitha cystitis, diverticulitis, hepatitis, colitis, UTI, PID, TOA, pyelonephritis, prostatitis, epididymitis, meningitis, encephalitis, pulmonary embolism, CVA, thyroid storm, pancreatitis, adrenal cr xiao, cavernous sinus thrombosis, this is not meant to be an all-inclusive list. EKG interpreted by me (3pts min.). @ -None X-rays interpreted by me (1pt min.). @ -Chest x-ray shows no acute cardiopulmonary process CT interpreted by me (1pt min.). @ -None done U/S interpreted by me (1pt. min.). @ -None done What testing was considered but not performed or refused? (CT, X-rays, U/S, labs)? Why? @ -None What meds were considered but not given or refused? Why? @ -None Did you discuss the management of the patient with other professionals (professionals i.e. , PA, DEMOLITIONIST, lab, RT, psych nurse, licensed clinical social worker, marketing and communications officer, teacher, chief science officer, housing case manager)? Give summary @ -[Dr. Avery for admission secondary to the neutropenic fever Was smoking cessation discussed for >3mins.? @ -No Was critical care preformed (if so, how long)? @ -No Were there social determinants of health that impacted care today? How? (Homele ssness, low income, unemployed, alcoholism, drug addiction, transportation, low edu. Level, literacy, decrease access to med. care, fdc, rehab)? @ -No Was there de-escalation of care discussed even if they declined (Discuss DNR or withdrawal of care, Hospice)? DNR status @ -No What co-morbidities impacted this encounter? (DM, HTN, Smoking, COPD, CAD, Cancer, CVA, ARF, Chemo, Hep., AIDS, mental health diagnosis, sleep apnea, morbid obesity)? @ -Lymphoma Was patient admitted / discharged? Hospital course, mention meds given and route, prescriptions, significant lab abnormalities, going to OR and other pertinent info. @ -Admitted patient's found to have neutropenia and fever or white count 0.4 with no obvious source for infection patient was started on cefepime, vancomycin patient will be admitted with consultation to oncology. Undiagnosed new problem with uncertain prognosis? @ -No Drug Therapy requiring intensive monitoring for toxicity (Heparin, Nitro, Insulin, Cardizem)? @ -No Were any procedures done? @ -No Diagnosis/symptom? @ -Neutropenic fever Acute, or Chronic, or Acute on Chronic? @ -Acute Uncomplicated (without systemic symptoms) or Complicated (systemic symptoms)? @ -, Complicated Side effects of treatment? @ -No Exacerbation, Progression, or Severe Exacerbation? @ -No Poses a threat to life or bodily function? How? (Chest pain, [place], [place], pneumonia, PE, COPD, DKA, ARF, appy, cholecystitis, CVA, Diverticulitis, Homicidal, Suicidal, threat to staff... and all critical care pts) @ -[Yes patient has neutropenic fever, immunocompromised - Lab Data Result diagrams: 03/20/23 14:46 03/20/23 14:46 Lab Results 03/20/23 03/20/23 03/20/23 Range/Units 14:46 14:46 14:46 WBC 0.4 L* (3.8-10.6) k/uL RBC 3.85 L (4.30-5.90) m/uL Hgb 11.7 L (13.0-17.5) gm/dL Hct 33.7 L (39.0-53.0) % MCV 87.3 (80.0-100.0) fL MCH 30.4 (25.0-35.0) pg MCHC 34.8 (31.0-37.0) g/dL RDW 13.2 (11.5-15.5) % MPV 9.8 PT (10.0-12.5) sec INR (<1.2) APTT (22.0-30.0) sec Sodium 133 L (137-145) mmol/L Potassium 4.8 (3.5-5.1) mmol/L Chloride 102 (98-107) mmol/L Carbon Dioxide 24 (22-30) mmol/L Anion Gap 7 mmol/L BUN 28 H (9-20) mg/dL Creatinine 0.97 (0.66-1.25) mg/dL Est GFR (CKD-EPI)AfAm 89 (>60 ml/min/1.73 sqM) Est GFR (CKD-EPI)NonAf 77 (>60 ml/min/1.73 sqM) Glucose 156 H (74-99) mg/dL Plasma Lactic Acid Constantine (0.7-2.0) mmol/L Calcium 8.4 (8.4-10.2) mg/dL Total Bilirubin 1.1 (0.2-1.3) mg/dL AST 23 (17-59) U/L ALT 50 H (4-49) U/L Alkaline Phosphatase 79 (38-126) U/L Total Protein 5.7 L (6.3-8.2) g/dL Albumin 3.2 L (3.5-5.0) g/dL Urine Color Yellow Urine Appearance Clear (Clear) Urine pH 7.5 (5.0-8.0) Ur Specific [place] 1.023 (1.001-1.035) Urine Protein Trace H (Negative) Urine Glucose (UA) Negative (Negative) Urine Ketones Negative (Negative) Urine Blood Negative (Negative) Urine Nitrite Negative (Negative) Urine Bilirubin Negative (Negative) Urine Urobilinogen 12.0 (<2.0) mg/dL Ur Leukocyte Esterase Negative (Negative) Influenza Type A (PCR) (Not Detectd) Influenza Type B (PCR) (Not Detectd) RSV (PCR) (Not Detectd) SARS-CoV-2 (PCR) (Not Detectd) 03/20/23 03/20/23 03/20/23 Range/Units 14:46 14:46 14:46 WBC (3.8-10.6) k/uL RBC (4.30-5.90) m/uL Hgb (13.0-17.5) gm/dL Hct (39.0-53.0) % MCV (80.0-100.0) fL MCH (25.0-35.0) pg MCHC (31.0-37.0) g/dL RDW (11.5-15.5) % MPV PT 11.3 (10.0-12.5) sec INR 1.0 (<1.2) APTT 25.6 (22.0-30.0) sec Sodium (137-145) mmol/L Potassium (3.5-5.1) mmol/L Chloride (98-107) mmol/L Carbon Dioxide (22-30) mmol/L Anion Gap mmol/L BUN (9-20) mg/dL Creatinine (0.66-1.25) mg/dL Est GFR (CKD-EPI)AfAm (>60 ml/min/1.73 sqM) Est GFR (CKD-EPI)NonAf (>60 ml/min/1.73 sqM) Glucose (74-99) mg/dL Plasma Lactic Acid Constantine 1.7 (0.7-2.0) mmol/L Calcium (8.4-10.2) mg/dL Total Bilirubin (0.2-1.3) mg/dL AST (17-59) U/L ALT (4-49) U/L Alkaline Phosphatase (38-126) U/L Total Protein (6.3-8.2) g/dL Albumin (3.5-5.0) g/dL Urine Color Urine Appearance (Clear) Urine pH (5.0-8.0) Ur Specific [place] (1.001-1.035) Urine Protein (Negative) Urine Glucose (UA) (Negative) Urine Ketones (Negative) Urine Blood (Negative) Urine Nitrite (Negative) Urine Bilirubin (Negative) Urine Urobilinogen (<2.0) mg/dL Ur Leukocyte Esterase (Negative) Influenza Type A (PCR) Not Detected (Not Detectd) Influenza Type B (PCR) Not Detected (Not Detectd) RSV (PCR) Not Detected (Not Detectd) SARS-CoV-2 (PCR) Not Detected (Not Detectd) Disposition Clinical Impression: Lymphoma, Neutropenic fever Disposition: ADMITTED IP TO THIS HOSP Condition: Fair Referrals: Marcos Anaya MD [Primary Care Provider] - 1-2 days Time of Disposition: 16:33
[2023-03-20 15:40] LABS: ALT 50 U/L (4-49); AST 23 U/L (17-59); African American GFR (CKD) 89 (>60 ml/min/1.73 sqM); Albumin 3.2 g/dL (3.5-5.0); Alkaline Phosphatase 79 U/L (38-126); Anion Gap 7 mmol/L; Blood Urea Nitrogen 28 mg/dL (9-20); Calcium 8.4 mg/dL (8.4-10.2); Carbon Dioxide 24 mmol/L (22-30); Chloride 102 mmol/L (98-107); Glucose 156 mg/dL (74-99); Non-African American GFR(CKD) 77 (>60 ml/min/1.73 sqM); Sodium 133 mmol/L (137-145); Total Bilirubin 1.1 mg/dL (0.2-1.3); Total Protein 5.7 g/dL (6.3-8.2)
[2023-03-20 15:44] LABS: HCT 33.7 % (39.0-53.0); HGB 11.7 gm/dL (13.0-17.5); MCH 30.4 pg (25.0-35.0); MCHC 34.8 g/dL (31.0-37.0); MCV 87.3 fL (80.0-100.0); Mean Platelet Volume 9.8; RBC 3.85 m/uL (4.30-5.90); RDW 13.2 % (11.5-15.5)
[2023-03-20 15:45] LABS: Potassium 4.8 mmol/L (3.5-5.1)
[2023-03-20 15:56] LABS: Appearance,Urine Clear (Clear); Bilirubin,Urine Negative (Negative); Blood,Urine Negative (Negative); Color,Urine Yellow; Glucose,Urine (UA) Negative (Negative); Ketones,Urine Negative (Negative); Leukocyte Esterase,Urine Negative (Negative); Nitrite,Urine Negative (Negative); PH, Urine 7.5 (5.0-8.0); Protein,Urine Trace (Negative); Specific Gravity,Urine 1.023 (1.001-1.035)
[2023-03-20] MEDS ORDERED: VANCOMYCIN IV PER PHARMACY 1 EACH MISC MISCELLANE PRN (16:23)
[2023-03-20] MEDS ORDERED: CEFEPIME 2 GM in SODIUM CHLORIDE 0.9% 100 ML IVPB STA (16:28)
[2023-03-20] MEDS ORDERED: NALOXONE 0.4 MG/ML 1 ML VIAL IV PRN (16:33)
[2023-03-20] MEDS ORDERED: ACETAMINOPHEN TAB 325 MG TAB PO PRN (16:33)
[2023-03-20] MEDS ORDERED: ONDANSETRON 4 MG/2 ML VIAL IVP PRN ×2 (16:33→18:06)
[2023-03-20 16:48] LABS: Platelet Count 55 k/uL (150-450)
[2023-03-20] MEDS ORDERED: VANCOMYCIN 1,500 MG in SODIUM CHLORIDE 0.9% 500 ML 500 ML IVPB ONE (17:00)
[2023-03-20] MEDS ORDERED: bisacodyL 5 MG TABLET.DR PO PRN (18:06)
[2023-03-20] MEDS ORDERED: MELATONIN 5 MG TABLET PO PRN (18:06)
[2023-03-20] MEDS ORDERED: HYDROcodone/APAP 5-325MG 1 EACH TAB PO PRN (18:06)
--- NOTE | 2023-03-20 18:11 | P.HPIM ---
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 On arrival to the ER he had a fever of 102.3. Initial laboratory analysis included CBC with differential, coagulation studies, CMP, and urinalysis which were remarkable for white blood cell count of 0.4, hemoglobin 11.7, platelets 55, sodium 33, and BUN of 28. Influenza A/B/RSV/COVID-19 testing was negative. Chest x-ray shows no acute process with Metaport in appropriate position. All cultures were obtained. He was administered vancomycin and cefepime. Arrangements were made for admission for neutropenic sepsis. Patient seen and examined at bedside with present. He had his first round of R-CHOP on 03/12, port placed on 03/03. He did 5 days of prednisone. He stared having fevers on and contacted Dr. Gage today when his fevers at home reached 102.3 and was inistructed to presetn to the emergency department. He was having some mouth sore and using a baking soda wash, those have gotten better over the last day. He denies any unusualy chest pain, SOB, nuasea, vomting, diarrhea, dysuria, or rashes. He is feeling tired and woren out since Vital signs reviewed General: nontoxic, no distress, appears at stated age Derm: warm, dry, port site appear normal without warmth or erythema Eyes: EOMI, no lid lag, anicteric sclera, pupils equal round reactive to light ENT: Nose and ears atraumatic, no thrush, no pharyngeal erythema Mouth: No abscess, no thrush Cardiovascular: S1S2 reg, no murmur, positive posterior tibial pulse bilateral, no edema Lungs: clear to auscultation bilateral, no rhonchi, no rales, no wheeze, no accessory muscle use Abdominal: soft, nontender to palpation, no guarding, no appreciable organomegaly, normal bowel sounds Ext: no gross muscle atrophy, no contractures Neuro: CN II-XII grossly intact, no focal nuero deficits Psych: Alert, oriented, appropriate affect Assessment/Plan: Neutropenic fevers High-grade B cell lymphoma, gastric Pancytopenia (anemia, thrombocytopenia, neutorpenia) due to chemo History of bladder cancer currently in remission, history of prostate cancer currently in remission -Continue with vancomycin IV piggyback dosing per creatinine, follow vancomycin trough, daily monitoring of renal function -Cefepime 2 g IV piggyback every 8 hours -Blood cultures obtained and pending -Chest x-ray negative, urinalysis negative -Consult oncology -Patient will need daily basis metabolic profile and vancomycin trough for vancomycin and monitoring of toxicity. Daily CBC until white blood cell count recovers. -History of cirrhosis and last paracentesis greater than 2 years ago will need weeks her blood IV fluids. We'll start normal saline at 75 mL/h Hyponatremia Cirrhosis secondary to fatty liver disease -Hold Lasix and spironolactone given intensity of fevers -Monitor closely for ascites and lower extremity edema Imaging: As per HPI Data Review: HPI The patient is admitted with an anticipated greater than 2 midnight stay for evaluation of neutropenic fevers. Surrogate decision-maker: CODE STATUS:Full DVT prophylaxis: SCDs Discussed with: , ED provider Anticipated discharge date: Pending Clinical Course Anticipated discharge place: Pending Clinical Course This dictation was prepared using [employer] voice recognition software. Though every attempt is made to correct errors during dictation some may still exist. 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 2020, History of Any Multi-Drug Resistant Organisms: None Reported Past Surgical History: Appendectomy, Orthopedic Surgery Additional Past Surgical History / Comment(s): knee, meniscus torn (left) multiple large volume right side thoracentesis, colonoscopy, egd, mediport Past Anesthesia/Blood Transfusion Reactions: No Reported Reaction Additional Past Anesthesia/Blood Transfusion Reaction / Comment(s): no blood transfusion Smoking Status: Former smoker Past Alcohol Use History: Rare - Past Family History Mother Family Medical History: No Reported History Additional Family Medical History / Comment(s): pt does not know his family history Medications and Allergies Home Medications Medication Instructions Recorded Confirmed Type Cholecalciferol [Vitamin D3] 400 unit PO DAILY 02/06/20 03/20/23 History Vitamin E (Dl,Tocopheryl Acet) 1,000 unit PO DAILY 02/06/20 03/20/23 History [Vitamin E] Escitalopram Oxalate [Lexapro] 10 mg PO DAILY 03/04/20 03/20/23 History Furosemide [Lasix] 20 mg PO DAILY 03/20/20 03/20/23 History Spironolactone 25 mg PO DAILY 12/14/22 03/20/23 History Tamsulosin HCl [Flomax] 0.4 mg PO HS 12/14/22 03/20/23 History Omeprazole 40 mg PO DAILY 02/08/23 03/20/23 History Aprepitant [Emend] 80 mg PO DIRECTED 03/20/23 03/20/23 History Ondansetron [Zofran] 4 - 8 mg PO Q4H PRN 03/20/23 03/20/23 History predniSONE [Deltasone] 100 mg PO DIRECTED 03/20/23 03/20/23 History Allergies Allergy/AdvReac Type Severity Reaction Status Date / Time No Known Allergies Allergy Verified 03/20/23 16:54 Physical Exam Osteopathic Statement: *. No significant issues noted on an osteopathic structural exam other than those noted in the History and Physical/Consult. Vitals: Vital Signs Temp Pulse Pulse Resp BP BP Pulse Ox 03/20/23 17:47 98.5 F 80 20 108/69 96 03/20/23 17:02 98.9 F 74 18 124/84 97 03/20/23 14:48 18 03/20/23 14:16 102.3 F H 87 20 117/68 97 Intake and Output 03/20/23 03/20/23 03/20/23 06:59 14:59 22:59 Intake Total 100 Balance 100 Intake: Intake, IV Titration 100 Amount Cefepime 2 gm In Sodium 100 Chloride 0.9% 100 ml @ 200 mls/hr IVPB ONCE STA Rx#:[id number] Other: Weight 97.522 kg 97.522 kg Results CBC & Chem 7: 03/20/23 14:46 03/20/23 14:46 Labs: Abnormal Lab Results - Last 24 Hours (Table) 03/20/23 03/20/2303/20/23 Range/Units 14:46 14:46 14:46 WBC 0.4 L* (3.8-10.6) k/uL RBC 3.85 L (4.30-5.90) m/uL Hgb 11.7 L (13.0-17.5) gm/dL Hct 33.7 L (39.0-53.0) % Plt Count 55 L (150-450) k/uL Sodium 133 L (137-145) mmol/L BUN 28 H (9-20) mg/dL Glucose 156 H (74-99) mg/dL ALT 50 H (4-49) U/L Total Protein 5.7 L (6.3-8.2) g/dL Albumin 3.2 L (3.5-5.0) g/dL Urine Protein Trace H (Negative) Thrombosis Risk Factor Assmnt - Choose All That Apply Any of the Below Risk Factors Present?: Yes Each Factor Represents 1 point: Medical pt on bed rest, Swollen legs (current) Each Risk Factor Represents 2 Points: Age 61-74 years, Malignancy Thrombosis Risk Factor Assessment Total Risk Factor Score: 6 Thrombosis Risk Factor Assessment Level: High Risk
[2023-03-20] MEDS: TAMSULOSIN 0.4 MG CAP.ER.24H PO SCH (20:16)
[2023-03-20] MEDS: CEFEPIME 2 GM in SODIUM CHLORIDE 0.9% 100 ML IVPB SCH (23:47)
[2023-03-21] MEDS: VANCOMYCIN 1,500 MG in SODIUM CHLORIDE 0.9% 500 ML 500 ML IVPB SCH ×2 (05:50→21:09)
[2023-03-21 06:30] LABS: HCT 30.5 % (39.0-53.0); HGB 10.6 gm/dL (13.0-17.5); MCH 30.5 pg (25.0-35.0); MCHC 34.6 g/dL (31.0-37.0); Mean Platelet Volume 9.6; RBC 3.47 m/uL (4.30-5.90)
[2023-03-21 06:38] LABS: African American GFR (CKD) 89 (>60 ml/min/1.73 sqM); Anion Gap 6 mmol/L; Blood Urea Nitrogen 24 mg/dL (9-20); Calcium 8.4 mg/dL (8.4-10.2); Carbon Dioxide 23 mmol/L (22-30); Chloride 106 mmol/L (98-107); Glucose 129 mg/dL (74-99); Non-African American GFR(CKD) 77 (>60 ml/min/1.73 sqM); Potassium 4.6 mmol/L (3.5-5.1); Sodium 135 mmol/L (137-145)
[2023-03-21 06:41] LABS: African American GFR (CKD) 89 (>60 ml/min/1.73 sqM); Non-African American GFR(CKD) 77 (>60 ml/min/1.73 sqM)
[2023-03-21] MEDS ORDERED: polyethylene glycoL 3350 17 GM POWD.PACK PO PRN (08:21)
--- NOTE | 2023-03-21 08:21 | P.PN ---
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 On arrival to the ER he had a fever of 102.3. Initial laboratory analysis included CBC with differential, coagulation studies, CMP, and urinalysis which were remarkable for white blood cell count of 0.4, hemoglobin 11.7, platelets 55, sodium 33, and BUN of 28. Influenza A/B/RSV/COVID-19 testing was negative. Chest x-ray shows no acute process with Mediport in appropriate position. All cultures were obtained. He was administered vancomycin and cefepime. Arrangements were made for admission for neutropenic sepsis. He was continued on Vanco and cefepime. Oncology was consulted. Patient seen and examined at bedside. He is feeling well today. No nausea, no cough, no diarrhea. We discussed that ANC is not yet available and another 24 hours of IV abx. Vital signs reviewed General: [nontoxic], [no distress], [appears at stated age] Cardiovascular: [S1S2 reg], [no murmur], [positive posterior tibial pulse bilateral], Lungs: [CTA bilateral], [no rhonchi, no rales] , [no accessory muscle use] Abdominal: [soft], [ nontender to palpation], [no guarding], [no appreciable organomegaly] Ext: [no gross muscle atrophy], [no edema b/l lower extremities], [no contractures] Neuro: [ CN II-XI grossly intact], [no focal neuro deficits] Psych: [Alert], [oriented], [appropriate affect] Assessment/Plan: Neutropenic fevers-- no fevers since admission High-grade B cell lymphoma, gastric Pancytopenia (anemia, thrombocytopenia, neutorpenia) due to chemo History of bladder cancer currently in remission, history of prostate cancer currently in remission -Continue with vancomycin IVPB D# 2 - dosing per creatinine, follow vancomycin trough, daily monitoring of renal function -Cefepime 2 g IV piggyback every 8 hours D # 2 -Blood cultures negative to date -Chest x-ray negative, urinalysis negative -Await Oncology recs -Patient will need daily basis metabolic profile and vancomycin trough for vancomycin and monitoring of toxicity. Daily CBC until white blood cell count recovers. - D/C normal saline at 75 mL/h Hyponatremia Cirrhosis secondary to fatty liver disease -Hold Lasix and spironolactone given intensity of fevers -Monitor closely for ascites and lower extremity edema Imaging: None new Data Review: Afebrile since admission Labs from today include CBC and basic metabolic profile which were remarkable for white blood cell count of 0.9, platelets 51, hemoglobin 10.6, sodium 135, BUN 24, and glucose 129. DVT prophylaxis: SCDs due to plt of 51 Anticipated discharge date: Pending Clinical Course Anticipated discharge place: Pending Clinical Course This dictation was prepared using [employer] voice recognition software. Though every attempt is made to correct errors during dictation some may still exist. Objective - Vital Signs Vital signs: Vital Signs Temp 98.1 F 03/21/23 01:01 EST Pulse 70 03/21/23 01:01 EST Resp 18 03/21/23 01:01 EST BP 100/61 03/21/23 01:01 EST Pulse Ox 97 03/21/23 01:01 EST FiO2 Intake & Output 03/20/23 03/21/23 03/21/23 19:59 06:59 18:59 Intake Total Balance Weight Intake: Intake, IV Titration Amount Cefepime 2 gm In Sodium Chloride 0.9% 100 ml @ 200 mls/hr IVPB ONCE STA Rx#:[id number] Vancomycin 1,500 mg In Sodium Chloride 0.9% 500 ml 500 ml @ 167 mls/hr IVPB Q16H [facility] Rx#: [id number] Oral Other: Voiding Method # Voids # Bowel Movements - Labs CBC & Chem 7: 03/21/23 05:41 03/21/23 05:41 Labs: Abnormal Lab Results - Last 24 Hours (Table) 03/20/23 03/20/23 03/20/23 Range/Units 14:46 14:46 14:46 WBC 0.4 L* (3.8-10.6) k/uL RBC 3.85 L (4.30-5.90) m/uL Hgb 11.7 L (13.0-17.5) gm/dL Hct 33.7 L (39.0-53.0) % Plt Count 55 L (150-450) k/uL Sodium 133 L (137-145) mmol/L BUN 28 H (9-20) mg/dL Glucose 156 H (74-99) mg/dL ALT 50 H (4-49) U/L Total Protein 5.7 L (6.3-8.2) g/dL Albumin 3.2 L (3.5-5.0) g/dL Urine Protein Trace H (Negative) 03/21/23 03/21/23 Range/Units 05:41 05:41 WBC 0.9 L* (3.8-10.6) k/uL RBC 3.47 L (4.30-5.90) m/uL Hgb 10.6 L (13.0-17.5) gm/dL Hct 30.5 L (39.0-53.0) % Plt Count 51 L (150-450) k/uL Sodium 135 L (137-145) mmol/L BUN 24 H (9-20) mg/dL Glucose 129 H (74-99) mg/dL ALT (4-49) U/L Total Protein (6.3-8.2) g/dL Albumin (3.5-5.0) g/dL Urine Protein (Negative)
[2023-03-21 08:35] LABS: Platelet Count 51 k/uL (150-450)
[2023-03-21] MEDS: PANTOPRAZOLE 40 MG TABLET PO SCH (09:27)
[2023-03-21] MEDS: ESCITALOPRAM 10 MG TAB PO SCH (09:27)
[2023-03-21] MEDS: CEFEPIME 2 GM in SODIUM CHLORIDE 0.9% 100 ML IVPB SCH ×2 (10:09→16:54)
--- NOTE | 2023-03-21 10:43 | P.CONS ---
History of Present Illness - Reason for Consult Consult date: 03/21/23 febrrile neutropenia, lymphoma on chemotherapy - History of Present Illness the patient is a 72-year-old white male, well known to our service. He was diagnosed with if his large B cell lymphoma, on gastric biopsy on EGD. This was negative for level/20. He had a port placement and was initiated on R CHOP on 03/12/23. He received Neulasta the next day. Patient had called the answering service yesterday, with complains of some mucositis which were actually minor. At that time he stated that he had been having some low-grade temperatures, the highest around 100.3. he was otherwise asymptomatic. the patient was advised to come to the ER if his temperature went higher than 100.4. He did subsequently spiked a temp of 102.3. He therefore came to the ER where his WBC was noted to be 0.4. He was therefore admitted for further management. He denied any symptoms localizing for infection. No chills or rigors. Appetite has been reasonable. He has had some decline in energy level since chemo, Bushra is continuing to perform all his ADLs. Review of Systems Constitutional: Reports fatigue, Reports fever Eyes: denies blurred vision, denies pain Ears: deny: decreased hearing, ear discharge, earache, tinnitus Ears, nose, mouth and throat: Reports as per HPI Cardiovascular: Denies chest pain, Denies shortness of breath Respiratory: Denies cough Gastrointestinal: Reports constipation Genitourinary: Reports as per HPI Musculoskeletal: Denies myalgias Integumentary: Denies pruritus, Denies rash Neurological: Denies numbness, Denies weakness Psychiatric: Denies anxiety, Denies depression Endocrine: Reports fatigue Hematologic/Lymphatic: Reports as per HPI Past Medical History Past Medical History: Cancer, GERD/Reflux, Hypertension, Liver Disease, Rheumatoid Arthritis (RA) Additional Past Medical History / Comment(s): gout, Cirrhosis due to FLD, Rheumatoid arthritis, bladder cancer, prostate cancer psa .060 Radiation for prostate. 2020, History of Any Multi-Drug Resistant Organisms: None Reported Past Surgical History: Appendectomy, Orthopedic Surgery Additional Past Surgical History / Comment(s): knee, meniscus torn (left) multiple large volume right side thoracentesis, colonoscopy, egd, mediport Past Anesthesia/Blood Transfusion Reactions: No Reported Reaction Additional Past Anesthesia/Blood Transfusion Reaction / Comm: no blood transfusion Smoking Status: Former smoker Past Alcohol Use History: Rare - Past Family History Mother Family Medical History: No Reported History Additional Family Medical History / Comment(s): pt does not know his family history Medications and Allergies Home Medications Medication Instructions Recorded Confirmed Type Cholecalciferol [Vitamin D3] 400 unit PO DAILY 02/06/20 03/20/23 History Vitamin E (Dl,Tocopheryl Acet) 1,000 unit PO DAILY 02/06/20 03/20/23 History [Vitamin E] Escitalopram Oxalate [Lexapro] 10 mg PO DAILY 03/04/20 03/20/23 History Furosemide [Lasix] 20 mg PO DAILY 03/20/20 03/20/23 History Spironolactone 25 mg PO DAILY 12/14/22 03/20/23 History Tamsulosin HCl [Flomax] 0.4 mg PO HS 12/14/22 03/20/23 History Omeprazole 40 mg PO DAILY 02/08/23 03/20/23 History Aprepitant [Emend] 80 mg PO DIRECTED 03/20/23 03/20/23 History Ondansetron [Zofran] 4 - 8 mg PO Q4H PRN 03/20/23 03/20/23 History predniSONE [Deltasone] 100 mg PO DIRECTED 03/20/23 03/20/23 History Allergies Allergy/AdvReac Type Severity Reaction Status Date / Time No Known Allergies Allergy Verified 03/20/23 16:54 Physical Exam Vitals: Vital Signs Temp Pulse Pulse Resp BP BP Pulse Ox 03/21/23 07:16 98.1 F 66 18 112/65 97 03/21/23 01:01 EST 98.1 F 70 18 100/61 97 03/20/23 20:05 18 03/20/23 18:55 98.3 F 81 18 114/60 95 03/20/23 17:47 98.5 F 80 20 108/69 96 03/20/23 17:02 98.9 F 74 18 124/84 97 03/20/23 14:48 18 03/20/23 14:16 102.3 F H 87 20 117/68 97 Intake and Output 03/20/23 03/21/23 03/21/23 23:59 06:59 14:59 Intake Total Balance Intake: Intake, IV Titration Amount Cefepime 2 gm In Sodium Chloride 0.9% 100 ml @ 200 mls/hr IVPB ONCE STA Rx#:[id number] Vancomycin 1,500 mg In Sodium Chloride 0.9% 500 ml 500 ml @ 167 mls/hr IVPB Q16H [facility] Rx#: [id number] Oral Other: Voiding Method Toilet # Voids # Bowel Movements Weight - Constitutional General appearance: no acute distress - EENT Eyes: EOMI, PERRLA ENT: hearing grossly normal, normal oropharynx - Neck Neck: no lymphadenopathy Thyroid: bilateral: normal size - Respiratory Respiratory: bilateral: CTA - Cardiovascular Rhythm: regular Heart sounds: normal: S1, S2 - Gastrointestinal General gastrointestinal: hyperactive bowel sounds, soft - Integumentary Integumentary: normal - Neurologic Neurologic: CNII-XII intact - Musculoskeletal Musculoskeletal: strength equal bilaterally - Psychiatric Psychiatric: A&O x's 3, appropriate affect Results CBC & Chem 7: 03/21/23 05:41 03/21/23 05:41 Labs: Abnormal Lab Results - Last 24 Hours (Table) 03/20/23 03/20/23 03/20/23 Range/Units 14:46 14:46 14:46 WBC 0.4 L* (3.8-10.6) k/uL RBC 3.85 L (4.30-5.90) m/uL Hgb 11.7 L (13.0-17.5) gm/dL Hct 33.7 L (39.0-53.0) % Plt Count 55 L (150-450) k/uL Sodium 133 L (137-145) mmol/L BUN 28 H (9-20) mg/dL Glucose 156 H (74-99) mg/dL ALT 50 H (4-49) U/L Total Protein 5.7 L (6.3-8.2) g/dL Albumin 3.2 L (3.5-5.0) g/dL Urine Protein Trace H (Negative) 03/21/23 03/21/23 Range/Units 05:41 05:41 WBC 0.9 L* (3.8-10.6) k/uL RBC 3.47 L (4.30-5.90) m/uL Hgb 10.6 L (13.0-17.5) gm/dL Hct 30.5 L (39.0-53.0) % Plt Count 51 L (150-450) k/uL Sodium 135 L (137-145) mmol/L BUN 24 H (9-20) mg/dL Glucose 129 H (74-99) mg/dL ALT (4-49) U/L Total Protein (6.3-8.2) g/dL Albumin (3.5-5.0) g/dL Urine Protein (Negative) Comments: CT sinuses report reviewed Chest x-ray: report reviewed Assessment and Plan (1) Neutropenic fever Narrative/Plan: the patient has developed neutropenia due to chemotherapy, and subsequently fever. he has no localizing signs for infection and physical exam is overall unremarkable. he has been started on broad-spectrum antibiotics, and cultures are in process. Chest x-ray was negative. - it was discussed with the patient that while it is possible that his fever could be inflammatory, due to impending WBC recovery, it is circumstances we have to assume, and treat for infection. He has already received Neulasta, and is at day #9. If ANC is still below 100 by 03/23, he0 can be started on Filgrastimx Current Visit: Yes Status: Acute Code(s): D70.9 - NEUTROPENIA, UNSPECIFIED; R50.81 - FEVER PRESENTING WITH CONDITIONS CLASSIFIED ELSEWHERE SNOMED Code(s): 715692701 (2) Pancytopenia due to antineoplastic chemotherapy Narrative/Plan: Hgb and plt are in a safe range. Plan for neutropenia as detailed above - Transfuse if hgb < 7, plt < 10 Current Visit: Yes Status: Acute Code(s): D61.810 - ANTINEOPLASTIC CHEMOTHERAPY INDUCED PANCYTOPENIA; T45.1X5A - ADVERSE EFFECT OF ANTINEOPLASTIC AND IMMUNOSUP DRUGS, INIT SNOMED Code(s): 520139157188500
[2023-03-21] MEDS: TAMSULOSIN 0.4 MG CAP.ER.24H PO SCH (21:08)
[2023-03-22] MEDS: CEFEPIME 2 GM in SODIUM CHLORIDE 0.9% 100 ML IVPB SCH ×2 (00:08→08:48)
[2023-03-22 07:06] LABS: Basophils % (A) 0 %; Eosinophils % (A) 1 %; HCT 30.4 % (39.0-53.0); HGB 10.1 gm/dL (13.0-17.5); Lymphocytes # (A) 0.4 k/uL (1.0-4.8); Lymphocytes % (A) 15 %; MCH 29.5 pg (25.0-35.0); MCHC 33.3 g/dL (31.0-37.0); MCV 88.5 fL (80.0-100.0); Monocytes # (A) 0.1 k/uL (0-1.0); Monocytes % (A) 5 %; Neutrophils # (A) 2.1 k/uL (1.3-7.7); Neutrophils % (A) 77 %; RBC 3.43 m/uL (4.30-5.90); RDW 13.1 % (11.5-15.5); WBC 2.7 k/uL (3.8-10.6)
[2023-03-22 07:14] LABS: Platelet Count 70 k/uL (150-450)
[2023-03-22 07:20] LABS: African American GFR (CKD) >90 (>60 ml/min/1.73 sqM); Anion Gap 8 mmol/L; Blood Urea Nitrogen 18 mg/dL (9-20); Calcium 8.1 mg/dL (8.4-10.2); Carbon Dioxide 21 mmol/L (22-30); Chloride 107 mmol/L (98-107); Glucose 102 mg/dL (74-99); Non-African American GFR(CKD) 84 (>60 ml/min/1.73 sqM); Potassium 4.1 mmol/L (3.5-5.1); Sodium 136 mmol/L (137-145)
[2023-03-22 07:49] VITALS: PULSE 65; RESP 17; TEMP 97.9
[2023-03-22] MEDS: ESCITALOPRAM 10 MG TAB PO SCH (08:48)
[2023-03-22] MEDS: PANTOPRAZOLE 40 MG TABLET PO SCH (08:48)
[2023-03-22] MEDS ORDERED: FUROSEMIDE 20 MG TAB PO SCH (09:00)
[2023-03-22] MEDS ORDERED: SPIRONOLACTONE 25 MG TAB PO SCH (09:00)
[2023-03-22 09:20] LABS: Dohle Bodies Present; Toxic Granulation Present
--- NOTE | 2023-03-22 11:18 | P.DS ---
Providers Date of admission: 03/20/23 16:43 Expected date of discharge: 03/22/23 Attending physician: Alicia Valadez DO Consults: 03/20/23 16:33 Consult Physician Urgent Consulting Provider: Castro Ordoñez Consult Reason/Comments: Neutropenic fever, lymphoma Do you want consulting provider notified?: Yes Primary care physician: Marcos Anaya MD Hospital Course: Discharge Diagnosis: Neutropenic Fevers High-grade B cell lymphoma, gastric Pancytopenia (anemia, thrombocytopenia, neutorpenia) due to chemo History of bladder cancer currently in remission, history of prostate cancer currently in remission Hyponatremia Cirrhosis secondary to fatty liver disease Hospital Course: Patient is a 72-year-old male with recently diagnosed high grade non-Hodgkin's B-cell lymphoma that is s/p first round of chemotherapy on 03/12/23, hypertension (no longer requiring meds), 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 On arrival to the ER he had a fever of 102.3. Initial laboratory analysis included CBC with differential, coagulation studies, CMP, and urinalysis which were remarkable for white blood cell count of 0.4, hemoglobin 11.7, platelets 55, sodium 33, and BUN of 28. Influenza A/B/RSV/COVID-19 testing was negative. Chest x-ray shows no acute process with Mediport in appropriate position. All cultures were obtained. He was administered vancomycin and cefepime. Arrangements were made for admission for neutropenic fevers.. He was continued on Vanco and cefepime. Oncology was consulted. They agreed with current management. Patient remained afebrile during his hospitalization. By the morning of 03/22 his white blood cell count had improved to 2.7. For discharge home. He will complete another 5 days of Levaquin for a total of 7 days of antibiotics. Follow-up: Dr Ordoñez this week, Dr. Anaya in 2-3 days. Pending: Blood cultures neg X 24 hours as discharge. Patient seen and examined at bedside. Doing well. No chest pain, shortness of breath, nausea, vomiting, diarrhea. No other complaints currently. Present at bedside. All questions answered. Vital signs reviewed and stable. General: nontoxic, no distress, appears at stated age Cardiovascular: S1S2 reg, no murmur, positive posterior tibial pulse bilateral, Lungs: CTA bilateral, no rhonchi, no rales , no accessory muscle use Abdominal: soft, nontender to palpation, no guarding, no appreciable organomegaly Ext: no gross muscle atrophy, no edema b/l lower extremities, no contractures Neuro: CN II-XI grossly intact, no focal neuro deficits Psych: Alert, oriented, appropriate affect A total of 45 minutes of time were spent preparing this complex discharge summary. Patient was discharged on 03/22/23. This dictation was prepared using [email or web address] voice recognition software. Though every attempt is made to correct errors during dictation some may still exist. Patient Condition at Discharge: Fair Plan - Discharge Summary New Discharge Prescriptions: New Levofloxacin [Levaquin] 750 mg PO DAILY 5 Days #5 tab Continue Cholecalciferol [Vitamin D3 (10 Mcg = 400 Iu)] 400 unit PO DAILY Vitamin E (Dl,Tocopheryl Acet) [Vitamin E] 1,000 unit PO DAILY Escitalopram Oxalate [Lexapro] 10 mg PO DAILY Furosemide [Lasix] 20 mg PO DAILY Tamsulosin HCl [Flomax] 0.4 mg PO HS Spironolactone 25 mg PO DAILY Aprepitant [Emend] 80 mg PO DIRECTED Omeprazole 40 mg PO DAILY predniSONE [Deltasone] 100 mg PO DIRECTED Discontinued Ondansetron [Zofran] 4 - 8 mg PO Q4H PRN PRN Reason: Nausea Discharge Medication List Cholecalciferol [Vitamin D3 (10 Mcg = 400 Iu)] 400 unit PO DAILY 02/06/20 [History] Vitamin E (Dl,Tocopheryl Acet) [Vitamin E] 1,000 unit PO DAILY 02/06/20 [History] Escitalopram Oxalate [Lexapro] 10 mg PO DAILY 03/04/20 [History] Furosemide [Lasix] 20 mg PO DAILY 03/20/20 [History] Spironolactone 25 mg PO DAILY 12/14/22 [History] Tamsulosin HCl [Flomax] 0.4 mg PO HS 12/14/22 [History] Omeprazole 40 mg PO DAILY 02/08/23 [History] Aprepitant [Emend] 80 mg PO DIRECTED 03/20/23 [History] predniSONE [Deltasone] 100 mg PO DIRECTED 11/04/23 [History] Levofloxacin [Levaquin] 750 mg PO DAILY 5 Days #5 tab 03/22/23 [Rx] Follow up Appointment(s)/Referral(s): Marcos Anaya MD [Primary Care Provider] - 1-2 days Castro Ordoñez MD [STAFF PHYSICIAN] - 1 Week Activity/Diet/Wound Care/Special Instructions: Activity: As tolerated Diet: Low sodium Special Instructions: Take another dose of lasix this evening We will continued to follow your blood cultures, if they become positive for some reason we will call you. Wearing a mask when out and about. Do not allow people with current visit. Take Levaquin prescribed, take your first dose today. Do not use Zofran while you are taking levofloxacin. Follow with Dr. Ordoñez's office later this week. Return to ER with recurrent fevers. Thank you for trust was with your care. We wish you well on your journey to better health Discharge Disposition: HOME SELF-CARE
[2023-03-22 12:54] VITALS: BP 121/71
--- NOTE | 2023-03-22 15:11 | P.PN ---
Subjective Progress Note Date: 03/22/23 Principal diagnosis: neutropenic fever, history lymphoma At today's visit patient is resting comfortably in bed. Patient reports feeling very well. Has no reported complaints Objective - Vital Signs Vital signs: Vital Signs Temp 97.9 F 03/22/23 07:12 Pulse 65 03/22/23 12:25 Resp 17 03/22/23 07:12 BP 121/71 03/22/23 12:25 Pulse Ox 96 03/22/23 07:12 FiO2 Intake & Output 03/21/23 03/22/23 03/22/23 18:59 06:59 18:59 Intake Total 1200 Balance 1200 Intake: Intake, IV Titration 600 Amount Cefepime 2 gm In Sodium 100 Chloride 0.9% 100 ml @ 25 mls/hr IVPB Q8HR JACKY Rx# :[id number] Vancomycin 1,500 mg In 500 Sodium Chloride 0.9% 500 ml 500 ml @ 167 mls/hr IVPB Q16H JACKY Rx#: [id number] Oral 600 Other: Voiding Method Toilet Toilet # Voids 2 2 # Bowel Movements 1 - Constitutional General appearance: Present: average body habitus, no acute distress - EENT Eyes: Present: anicteric sclerae, EOMI ENT: Present: hearing grossly normal - Respiratory Details: breathing is even and unlabored - Cardiovascular Details: skin warm and dry - Integumentary Integumentary: Absent: cyanotic - Neurologic Neurologic: Present: CNII-XII intact - Musculoskeletal Musculoskeletal: Present: strength equal bilaterally - Psychiatric Psychiatric: Present: A&O x's 3, appropriate affect, intact judgment & insight - Labs CBC & Chem 7: 03/22/23 06:47 03/22/23 06:47 Labs: Abnormal Lab Results - Last 24 Hours (Table) 03/22/23 03/22/23 Range/Units 06:47 06:47 WBC 2.7 L (3.8-10.6) k/uL RBC 3.43 L (4.30-5.90) m/uL Hgb 10.1 L (13.0-17.5) gm/dL Hct 30.4 L (39.0-53.0) % Plt Count 70 L (150-450) k/uL Lymphocytes # 0.4 L (1.0-4.8) k/uL Sodium 136 L (137-145) mmol/L Carbon Dioxide 21 L (22-30) mmol/L Glucose 102 H (74-99) mg/dL Calcium 8.1 L (8.4-10.2) mg/dL Microbiology - Last 24 Hours (Table) 03/20/23 14:49 Blood Culture - Preliminary Blood 03/20/23 14:44 Blood Culture - Preliminary Blood Assessment and Plan (1) Lymphoma Status: Acute Priority: High Code(s): C85.90 - NON-HODGKIN LYMPHOMA, UNSPECIFIED, UNSPECIFIED SITE SNOMED Code(s): 363509854 (2) Neutropenic fever Status: Acute Priority: High Code(s): D70.9 - NEUTROPENIA, UNSPECIFIED; R50.81 - FEVER PRESENTING WITH CONDITIONS CLASSIFIED ELSEWHERE SNOMED Code(s): 509138323 (3) Pancytopenia due to antineoplastic chemotherapy Status: Acute Priority: High Code(s): D61.810 - ANTINEOPLASTIC CHEMOTHERAPY INDUCED PANCYTOPENIA; T45.1X5A - ADVERSE EFFECT OF ANTINEOPLASTIC AND IMMUNOSUP DRUGS, INIT SNOMED Code(s): 089411596629598 Plan: Nuetropenic fever: -The patient has developed neutropenia due to chemotherapy, and subsequently fever. He has no localizing signs for infection and physical exam is overall unremarkable. he has been started on broad-spectrum antibiotics, and cultures are negative thus far. Chest x-ray was negative. -Pt remains afebrile x 48 hrs. Infectious workup thus far negative. Discussed case with IM team, they will f/u on blood cultures. Will start pt on PO levaquin upon discharge -WBC improved, 2.7, ANC 2100. -Fever seems to be likely inflammatory. Pt is cleared from hem/onc standpoint once cleared by IM and other consulted specialities Pancytopenia due to antineoplastic chemotherapy: - Hgb and plt are in a safe range. Plan for neutropenia as detailed above - Transfuse if hgb < 7, plt < 10 attests: I have performed H&P and developed impression and plan of care for patient, discussed with dictator. I agree with dictated note, documented as a scribe
[2023-03-29 12:15] LABS: WBC 0.4 k/uL (3.8-10.6)
[2023-03-29 12:16] LABS: WBC 0.9 k/uL (3.8-10.6)
== END 2023-03-22 13:35 | disposition home or self-care (01) | DRG 809 ==
LOC: EC 13:55 → 5NMEDONC 16:43
PROVIDERS: ADMIT Internal Medicine; ATTEND Internal Medicine
DX: D61.810 Antineoplastic chemotherapy induced pancytopenia (principal); C85.13 Unspecified B-cell lymphoma, intra-abdominal lymph nodes; D84.9 Immunodeficiency, unspecified; E27.2 Addisonian crisis; E87.1 Hypo-osmolality and hyponatremia; R50.81 Fever presenting with conditions classified elsewhere; T45.1X5A Adverse effect of antineoplastic and immunosuppressive drugs, initial encounter; Z20.822 Contact with and (suspected) exposure to COVID-19; D69.59 Other secondary thrombocytopenia; D70.1 Agranulocytosis secondary to cancer chemotherapy; K74.60 Unspecified cirrhosis of liver; K76.0 Fatty (change of) liver, not elsewhere classified; M06.9 Rheumatoid arthritis, unspecified; M10.9 Gout, unspecified; Z79.899 Other long term (current) drug therapy; Z85.46 Personal history of malignant neoplasm of prostate; Z85.51 Personal history of malignant neoplasm of bladder; X58.XXXA Exposure to other specified factors, initial encounter
CPT/HCPCS: 36415; 71046; 80048; 80053; 81003; 82565; 83605; 85025; 85610; 85730; 87040; 87636; 96365; 99285

== ENCOUNTER 2023-05-23 23:15 | Emergency (ER) | payer MEDICARE, BC ==
[2023-05-23] MEDS ORDERED: SODIUM CHLORIDE 0.9% 1,000 ML IV STA ×2 (23:25)
[2023-05-23] MEDS ORDERED: ACETAMINOPHEN TAB 500 MG TAB PO STA (23:25)
[2023-05-23] MEDS ORDERED: IBUPROFEN 600 MG TAB PO STA (23:25)
--- NOTE | 2023-05-23 23:27 | ED ---
Fever HPI - General Chief Complaint: Shortness of Breath Stated Complaint: Fever, RUFUS Time Seen by Provider: 05/23/23 23:25 Source: patient, RN notes reviewed, old records reviewed Mode of arrival: ambulatory Limitations: no limitations - History of Present Illness Initial Comments: This is a 72-year-old male to the emergency department for evaluation today. Patient is undergoing chemotherapy for cancer, patient is presented for fever today. He does have a persisting cough and patient does admit to coronavirus exposure. Patient again does have the coronavirus exposure and concerned he may have coronavirus. Patient did develop a fever today MD Complaint: fever, weakness, other (Cough) -: days(s) Temperature Source: subjective Context: sick contacts Associated Symptoms: chills, myalgias, nasal congestion, sore throat Treatments Prior to Arrival: none - Related Data Home Medications Medication Instructions Recorded Confirmed Cholecalciferol [Vitamin D3 (10 400 unit PO DAILY 02/06/20 03/20/23 Mcg = 400 Iu)] Vitamin E (Dl,Tocopheryl Acet) 1,000 unit PO DAILY 02/06/20 03/20/23 [Vitamin E] Escitalopram Oxalate [Lexapro] 10 mg PO DAILY 03/04/20 03/20/23 Furosemide [Lasix] 20 mg PO DAILY 03/20/20 03/20/23 Spironolactone 25 mg PO DAILY 12/14/22 03/20/23 Tamsulosin HCl [Flomax] 0.4 mg PO HS 12/14/22 03/20/23 Omeprazole 40 mg PO DAILY 02/08/23 03/20/23 Aprepitant [Emend] 80 mg PO DIRECTED 03/20/23 03/20/23 predniSONE [Deltasone] 100 mg PO DIRECTED 03/20/23 03/20/23 Previous Rx's Medication Instructions Recorded Levofloxacin [Levaquin] 750 mg PO DAILY 5 Days #5 tab 03/22/23 Benzonatate [Tessalon Perles] 100 mg PO TID PRN #15 capsule 05/24/23 Allergies Allergy/AdvReac Type Severity Reaction Status Date / Time No Known Allergies Allergy Verified 05/23/23 23:17 Review of Systems ROS Statement: Those systems with pertinent positive or pertinent negative responses have been documented in the HPI. ROS Other: All systems not noted in ROS Statement are negative. 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 2020, History of Any Multi-Drug Resistant Organisms: None Reported Past Surgical History: Appendectomy, Orthopedic Surgery Additional Past Surgical History / Comment(s): knee, meniscus torn (left) multiple large volume right side thoracentesis, colonoscopy, egd, mediport placed by Dr. Torres 03/04/23 Past Anesthesia/Blood Transfusion Reactions: No Reported Reaction Additional Past Anesthesia/Blood Transfusion Reaction / Comment(s): no blood transfusion Past Psychological History: Anxiety Smoking Status: Former smoker Past Alcohol Use History: Rare Past Drug Use History: None Reported - Past Family History Mother Family Medical History: No Reported History Additional Family Medical History / Comment(s): pt does not know his family history General Exam Limitations: no limitations General appearance: alert, in no apparent distress, anxious Head exam: Present: atraumatic, normocephalic, normal inspection Eye exam: Present: normal appearance, PERRL, EOMI. Absent: scleral icterus, conjunctival injection, periorbital swelling ENT exam: Present: normal exam, mucous membranes moist Neck exam: Present: normal inspection. Absent: tenderness, meningismus, lymphadenopathy Respiratory exam: Present: normal lung sounds bilaterally. Absent: respiratory distress, wheezes, rales, rhonchi, stridor Cardiovascular Exam: Present: normal rhythm, tachycardia, normal heart sounds. Absent: systolic murmur, diastolic murmur, rubs, gallop, clicks GI/Abdominal exam: Present: soft, normal bowel sounds. Absent: distended, tenderness, guarding, rebound, rigid Extremities exam: Present: normal inspection, full ROM, normal capillary refill. Absent: tenderness, pedal edema, joint swelling, calf tenderness Back exam: Present: normal inspection Neurological exam: Present: alert, oriented X3, CN II-XII intact Psychiatric exam: Present: normal affect, normal mood Skin exam: Present: warm, dry, intact, normal color. Absent: rash Course Vital Signs 05/23/23 05/24/23 05/24/23 23:17 01:02 01:20 Temperature 99.1 F 99.4 F Pulse Rate 114 H 76 Respiratory 20 Rate Blood Pressure 135/79 O2 Sat by Pulse 96 Oximetry 05/24/23 05/24/23 05/24/23 01:35 02:00 03:01 Temperature Pulse Rate 78 73 87 Respiratory 181 H 18 Rate Blood Pressure 95/58 89/57 O2 Sat by Pulse 95 Oximetry - Reevaluation(s) Reevaluation #1: 05/24/23 00:50 Records reviewed Reevaluation #2: Patient feels much improved here in the ER, feels better for discharge, no current active fever no cough congestion shortness of breath nausea vomiting or diarrhea Reevaluation #3: Patient informed results and questions answered Reevaluation #4: 05/24/23 00:51 Was pt. sent in by a medical professional or institution (FAY Epstein, [employer], urgent care, hospital, or fci...) When possible be specific @ -no Did you speak to anyone other than the patient for history (EMS, parent, family, police, friend...)? What history was obtained from this source @ -no Did you review nursing and triage notes (agree or disagree)? Why? @ -agree Are old charts reviewed (outside hosp., previous admission, EMS record, old EKG, old radiological studies, urgent care reports/EKG's, fci records)? Report findings @ -yes Differential Diagnosis (chest pain, altered mental status, abdominal pain women, abdominal pain men, vaginal bleeding, weakness, fever, dyspnea, syncope, headache, dizziness, GI bleed, back pain, seizure, CVA, palpatations, mental health, musculoskeletal)? @ -prior EKG interpreted by me (3pts min.). @ -yes X-rays interpreted by me (1pt min.). @ -yes negative for acute disease CT interpreted by me (1pt min.). @ -no U/S interpreted by me (1pt. min.). @ -no What testing was considered but not performed or refused? (CT, X-rays, U/S, labs)? Why? @ -none What meds were considered but not given or refused? Why? @ -none Did you discuss the management of the patient with other professionals (professionals i.e. FAY Epstein, [employer], lab, RT, psych nurse, social services specialist, environmental analyst, teacher, multisensor intelligence officer, welfare case worker)? Give summary @ -no Was smoking cessation discussed for >3mins.? @ -no Was critical care preformed (if so, how long)? @ -no Were there social determinants of health that impacted care today? How? (Homelessness, low income, unemployed, alcoholism, drug addiction, transp ortation, low edu. Level, literacy, decrease access to med. care, fci, rehab)? @ -none Was there de-escalation of care discussed even if they declined (Discuss DNR or withdrawal of care, Hospice)? DNR status @ -no What co-morbidities impacted this encounter? (DM, HTN, Smoking, COPD, CAD, Cancer, CVA, ARF, Chemo, Hep., AIDS, mental health diagnosis, sleep apnea, morbid obesity)? @ -none Was patient admitted / discharged? Hospital course, mention meds given and route, prescriptions, significant lab abnormalities, going to OR and other pertinent info. @ - 72 male the ER with evaluation of fever today. Patient is on chemotherapy but is not neutropenic currently with no source of fever found. Patient will be discharged follow-up with oncology at outpatient basis Discharged Undiagnosed new problem with uncertain prognosis? @ -no Drug Therapy requiring intensive monitoring for toxicity (Heparin, Nitro, Insulin, Cardizem)? @ -no Were any procedures done? @ -no Diagnosis/symptom? @ -Fever of unknown origin Acute, or Chronic, or Acute on Chronic? @ -Acute Uncomplicated (without systemic symptoms) or Complicated (systemic symptoms)? @ -Complicated Side effects of treatment? @ -no Exacerbation, Progression, or Severe Exacerbation? @ -exacerbation Poses a threat to life or bodily function? How? (Chest pain, [place], [place], pneumonia, PE, COPD, DKA, ARF, appy, cholecystitis, CVA, Diverticulitis, Homicidal, Suicidal, threat to staff... and all critical care pts) @ -yes chemotherapy, fever Reevaluation #5: 05/24/23 00:51 Differential Fever: Pneumonia, viral URI, endocarditis, myocarditis, pericarditis, otitis, sinusitis, peritonsillar Abscess, retropharyngeal Abscess, epiglottitis, peritonitis, appendicitis, Tabitha cystitis, diverticulitis, hepatitis, colitis, UTI, PID, TOA, pyelonephritis, prostatitis, epididymitis, meningitis, e ncephalitis, pulmonary embolism, CVA, thyroid storm, pancreatitis, adrenal crisis, cavernous sinus thrombosis, this is not meant to be an all-inclusive list. Medical Decision Making - Medical Decision Making 72 male the ER with evaluation of fever today. Patient is on chemotherapy but is not neutropenic currently with no source of fever found. Patient will be discharged follow-up with oncology at outpatient basis - Lab Data Result diagrams: 05/23/23 23:50 05/23/23 23:50 Lab Results 05/23/23 05/23/23 05/23/23 Range/Units 23:50 23:50 23:50 WBC 3.6 L (3.8-10.6) k/uL RBC 3.62 L (4.30-5.90) m/uL Hgb 11.5 L (13.0-17.5) gm/dL Hct 33.1 L (39.0-53.0) % MCV 91.6 (80.0-100.0) fL MCH 31.8 (25.0-35.0) pg MCHC 34.7 (31.0-37.0) g/dL RDW 16.9 H (11.5-15.5) % Plt Count 90 L (150-450) k/uL MPV 9.1 Neutrophils % 78 % Lymphocytes % 11 % Monocytes % 7 % Eosinophils % 1 % Basophils % 1 % Neutrophils # 2.8 (1.3-7.7) k/uL Lymphocytes # 0.4 L (1.0-4.8) k/uL Monocytes # 0.2 (0-1.0) k/uL Eosinophils # 0.0 (0-0.7) k/uL Basophils # 0.0 (0-0.2) k/uL Anisocytosis Slight PT 10.6 (10.0-12.5) sec INR 1.0 (<1.2) APTT 23.7 (22.0-30.0) sec Sodium 134 L (137-145) mmol/L Potassium 4.3 (3.5-5.1) mmol/L Chloride 103 (98-107) mmol/L Carbon Dioxide 21 L (22-30) mmol/L Anion Gap 10 mmol/L BUN 18 (9-20) mg/dL Creatinine 0.88 (0.66-1.25) mg/dL Est GFR (CKD-EPI)AfAm >90 (>60 ml/min/1.73 sqM) Est GFR (CKD-EPI)NonAf 85 (>60 ml/min/1.73 sqM) Glucose 164 H (74-99) mg/dL Plasma Lactic Acid Constantine (0.7-2.0) mmol/L Calcium 9.0 (8.4-10.2) mg/dL Phosphorus 3.1 (2.5-4.5) mg/dL Magnesium 1.8 (1.6-2.3) mg/dL Total Bilirubin 0.5 (0.2-1.3) mg/dL AST 21 (17-59) U/L ALT 28 (4-49) U/L Alkaline Phosphatase 101 (38-126) U/L Troponin I (0.000-0.034) ng/mL NT-Pro-B Natriuret Pep 198 pg/mL Total Protein 6.0 L (6.3-8.2) g/dL Albumin 3.6 (3.5-5.0) g/dL Influenza Type A (PCR) (Not Detectd) Influenza Type B (PCR) (Not Detectd) RSV (PCR) (Not Detectd) SARS-CoV-2 (PCR) (Not Detectd) 05/23/23 05/23/23 05/23/23 Range/Units 23:50 23:50 23:50 WBC (3.8-10.6) k/uL RBC (4.30-5.90) m/uL Hgb (13.0-17.5) gm/dL Hct (39.0-53.0) % MCV (80.0-100.0) fL MCH (25.0-35.0) pg MCHC (31.0-37.0) g/dL RDW (11.5-15.5) % Plt Count (150-450) k/uL MPV Neutrophils % % Lymphocytes % % Monocytes % % Eosinophils % % Basophils % % Neutrophils # (1.3-7.7) k/uL Lymphocytes # (1.0-4.8) k/uL Monocytes # (0-1.0) k/uL Eosinophils # (0-0.7) k/uL Basophils # (0-0.2) k/uL Anisocytosis PT (10.0-12.5) sec INR (<1.2) APTT (22.0-30.0) sec Sodium (137-145) mmol/L Potassium (3.5-5.1) mmol/L Chloride (98-107) mmol/L Carbon Dioxide (22-30) mmol/L Anion Gap mmol/L BUN (9-20) mg/dL Creatinine (0.66-1.25) mg/dL Est GFR (CKD-EPI)AfAm (>60 ml/min/1.73 sqM) Est GFR (CKD-EPI)NonAf (>60 ml/min/1.73 sqM) Glucose (74-99) mg/dL Plasma Lactic Acid Constantine 1.5 (0.7-2.0) mmol/L Calcium (8.4-10.2) mg/dL Phosphorus (2.5-4.5) mg/dL Magnesium (1.6-2.3) mg/dL Total Bilirubin (0.2-1.3) mg/dL AST (17-59) U/L ALT (4-49) U/L Alkaline Phosphatase (38-126) U/L Troponin I 0.012 (0.000-0.034) ng/mL NT-Pro-B Natriuret Pep pg/mL Total Protein (6.3-8.2) g/dL Albumin (3.5-5.0) g/dL Influenza Type A (PCR) Not Detected (Not Detectd) Influenza Type B (PCR) Not Detected (Not Detectd) RSV (PCR) Not Detected (Not Detectd) SARS-CoV-2 (PCR) Not Detected (Not Detectd) - EKG Data -: EKG Interpreted by Me (EKG is sinus 84 MO 163 QRS 104 and QTC is 401) - Radiology Data Radiology results: report reviewed (Chest x-rays negative for acute disease), image reviewed Disposition Clinical Impression: Fever, Lymphoma, Pancytopenia due to antineoplastic chemotherapy Disposition: HOME SELF-CARE Condition: Good Instructions (If sedation given, give patient instructions): Fever in Adults (ED) Prescriptions: Benzonatate [Tessalon Perles] 100 mg PO TID PRN #15 capsule PRN Reason: Cough Is patient prescribed a controlled substance at d/c from ED?: No Referrals: Marcos Anaya MD [Primary Care Provider] - 1-2 days Time of Disposition: 02:30
[2023-05-24 00:13] LABS: Anisocytosis Slight; Basophils % (A) 1 %; Eosinophils % (A) 1 %; HCT 33.1 % (39.0-53.0); HGB 11.5 gm/dL (13.0-17.5); Lymphocytes # (A) 0.4 k/uL (1.0-4.8); Lymphocytes % (A) 11 %; MCH 31.8 pg (25.0-35.0); MCHC 34.7 g/dL (31.0-37.0); MCV 91.6 fL (80.0-100.0); Mean Platelet Volume 9.1; Monocytes # (A) 0.2 k/uL (0-1.0); Monocytes % (A) 7 %; Neutrophils # (A) 2.8 k/uL (1.3-7.7); Neutrophils % (A) 78 %; RBC 3.62 m/uL (4.30-5.90); RDW 16.9 % (11.5-15.5); WBC 3.6 k/uL (3.8-10.6)
[2023-05-24 00:15] LABS: Platelet Count 90 k/uL (150-450)
[2023-05-24 00:21] LABS: Partial Thromboplastin Time 23.7 sec (22.0-30.0); Prothrombin Time 10.6 sec (10.0-12.5)
[2023-05-24 00:28] LABS: ALT 28 U/L (4-49); AST 21 U/L (17-59); African American GFR (CKD) >90 (>60 ml/min/1.73 sqM); Albumin 3.6 g/dL (3.5-5.0); Alkaline Phosphatase 101 U/L (38-126); Anion Gap 10 mmol/L; Blood Urea Nitrogen 18 mg/dL (9-20); Carbon Dioxide 21 mmol/L (22-30); Chloride 103 mmol/L (98-107); Glucose 164 mg/dL (74-99); Magnesium 1.8 mg/dL (1.6-2.3); Non-African American GFR(CKD) 85 (>60 ml/min/1.73 sqM); Phosphorus 3.1 mg/dL (2.5-4.5); Potassium 4.3 mmol/L (3.5-5.1); Sodium 134 mmol/L (137-145); Total Bilirubin 0.5 mg/dL (0.2-1.3)
[2023-05-24 00:36] LABS: NT-Pro-B-Type Natriuretic Pept 198 pg/mL
--- NOTE | 2023-05-24 00:50 | XR ---
EXAM: XR Chest, 1 View CLINICAL HISTORY: ITS.REASON XR Reason: sob TECHNIQUE: Frontal view of the chest. COMPARISON: No relevant prior studies available. FINDINGS: Lungs: Unremarkable. No consolidation. Pleural space: Unremarkable. No pneumothorax. Heart: Mild cardiomegaly. Mediastinum: Unremarkable. Normal mediastinal contour. Bones/joints: Unremarkable. No acute fracture. Tubes, lines and devices: RIGHT Port-A-Cath terminates in the SVC. IMPRESSION: RIGHT Port-A-Cath terminates in the SVC.
[2023-05-24 01:03] VITALS: TEMP 99.4
[2023-05-24] MEDS: IPRATROPIUM-ALBUTEROL 3 ML NEB INHALATION STA ×3 (01:13→01:20)
[2023-05-24] MEDS ORDERED: BENZONATATE 100 MG CAP PO STA (02:41)
[2023-05-24 03:20] VITALS: BP 89/57; PULSE 87; RESP 18
== END 2023-05-24 03:03 | disposition home or self-care (01) ==
LOC: EC 23:15
DX: D61.810 Antineoplastic chemotherapy induced pancytopenia (principal); C85.90 Non-Hodgkin lymphoma, unspecified, unspecified site; T45.1X5A Adverse effect of antineoplastic and immunosuppressive drugs, initial encounter; I10 Essential (primary) hypertension; F41.9 Anxiety disorder, unspecified; K21.9 Gastro-esophageal reflux disease without esophagitis; Z79.899 Other long term (current) drug therapy; Z87.891 Personal history of nicotine dependence; Z90.49 Acquired absence of other specified parts of digestive tract
CPT/HCPCS: 36415; 71045; 80053; 83605; 83735; 83880; 84100; 84484; 85025; 85610; 85730; 87636; 93005; 94640; 96360; 96361; 99285

== ENCOUNTER → 2023-09-16 | Outpatient (CLI) | payer MEDICARE, BC ==
--- NOTE | 2023-09-16 14:57 | US ---
EXAMINATION TYPE: US liver DATE OF EXAM: 09/16/2023 COMPARISON: 09/16/2023 CLINICAL INDICATION: Male, 73 years old with history of K74.60 CIRRHOSIS OF LIVER; Cirrhosis TECHNIQUE: Multiple sonographic images of the right upper quadrant are obtained. FINDINGS: EXAM MEASUREMENTS: Liver Length: 14.4 cm Gallbladder Wall: 0.3 cm CBD: 0.5 cm Right Kidney: 10.6 x 5.3 x 4.8 cm Pancreas: Obscured by bowel gas Liver: Limited views show no abnormality Gallbladder: gallstones Evidence for sonographic Ortiz's sign: No CBD: wnl Right Kidney: No evidence of hydro, vague, hypoechoic, solid area mid/lower as visualized on prior= 1.4 x 1.3 x 1.6 cm IMPRESSION: 1. No change in the liver echo texture or size with no focal liver mass. The echotexture is mildly co arsened possibly indicating cirrhosis. 2. No change in the cholelithiasis. 3. No change in the small solid right renal cortical mass. 4. Limited evaluation of pancreas.
== END | disposition home or self-care (01) ==
LOC: RADUSWWP 07:06
PROVIDERS: ATTEND Internal Medicine Gastroenterology
DX: K74.60 Unspecified cirrhosis of liver (principal)
CPT/HCPCS: 76705

== ENCOUNTER → 2023-09-16 | Outpatient (CLI) | payer MEDICARE, BC ==
[2023-09-17 11:19] LABS: Cryptosporidium Antigen Negative (Negative)
== END | disposition home or self-care (01) ==
LOC: LABWHC1 07:16
PROVIDERS: ATTEND Family Medicine
DX: R19.4 Change in bowel habit (principal)
CPT/HCPCS: 36415; 82272; 87045; 87046; 87328; 87329; 87338; 87798

== ENCOUNTER 2024-02-10 11:21 | Day surgery (SDC) | payer MEDICARE, BC ==
[~2024-02-10 11:21] MED LIST changes: -ACETAMINOPHEN TAB 500 MG TAB PO PRN; -HEPARIN SODIUM,PORCINE/PF 5,000 UNIT/0.5 ML SYRINGE SQ PRN; +HYDROmorphone 0.5 MG/0.5 ML SYRINGE IVP PRN; -LACTATED RINGERS 1,000 ML IV SCH; -Pre Op ABX Message 1 EACH MISC MISCELLANE ONE
[2024-02-10] MEDS: IV FLUID CONTINUATION 1,000 ML IV ONE (11:53)
[2024-02-10 11:55] VITALS: TEMP 96.8
[2024-02-10] MEDS: ACETAMINOPHEN TAB 500 MG TAB PO PRN (11:58)
[2024-02-10] MEDS: DEXAMETHASONE SOD PHOSPHATE 4 MG/ML 1 ML VIAL IV ONE (11:58)
[2024-02-10] MEDS: HEPARIN SODIUM,PORCINE 5,000 UNIT/ML 1 ML VIAL SQ PRN (11:58)
[2024-02-10] MEDS: ONDANSETRON 4 MG/2 ML VIAL IVP ONE (11:58)
[2024-02-10] MEDS: LACTATED RINGERS 1,000 ML IV SCH (11:59)
[2024-02-10] MEDS ORDERED: PROPOFOL 10 MG/ML 20 ML VIAL IV ONE (12:36)
[2024-02-10] MEDS ORDERED: fentaNYL (PF) 50 MCG/ML 2 ML AMP ONE (12:36)
[2024-02-10] MEDS ORDERED: MIDAZOLAM 2 MG/2 ML VIAL ONE (12:36)
--- NOTE | 2024-02-10 12:44 | P.GSHP ---
History of Present Illness H&P Date: 02/10/24 Chief Complaint: Lymphoma 73-year-old male here today for Port-A-Cath removal. Patient had Port-A-Cath placed over a year ago. Has not used it in quite a while. No issues with the port. 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 bladder cancer, prostate cancer, Radiation for prostate 2020, B cell non- hodgkin's lymphoma-currently in remission History of Any Multi-Drug Resistant Organisms: None Reported Past Surgical History: Appendectomy, Orthopedic Surgery Additional Past Surgical History / Comment(s): meniscus repair left knee, multiple large volume right side thoracentesis, colonoscopy, egd, mediport placed by Dr. Torres 03/04/23 Past Anesthesia/Blood Transfusion Reactions: No Reported Reaction Additional Past Anesthesia/Blood Transfusion Reaction / Comment(s): no blood transfusion Smoking Status: Former smoker - Past Family History Mother Family Medical History: No Reported History Additional Family Medical History / Comment(s): pt does not know his family history Medications and Allergies Home Medications Medication Instructions Recorded Confirmed Type Cholecalciferol [Vitamin D3 (10 400 unit PO DAILY 02/06/20 02/08/24 History Mcg = 400 Iu)] Vitamin E (Dl,Tocopheryl Acet) 1,000 unit PO DAILY 02/06/20 02/08/24 History [Vitamin E] Escitalopram Oxalate [Lexapro] 10 mg PO DAILY 03/04/20 02/08/24 History Furosemide [Lasix] 20 mg PO DAILY 03/20/20 02/08/24 History Spironolactone 25 mg PO DAILY 12/14/22 02/08/24 History Tamsulosin HCl [Flomax] 0.4 mg PO HS 12/14/22 02/08/24 History Omeprazole 40 mg PO DAILY 02/08/23 02/08/24 History Orencia Inj.(Unknown Dose) 0 mg INJ Q30D 02/08/24 02/08/24 History Allergies Allergy/AdvReac Type Severity Reaction Status Date / Time No Known Allergies Allergy Verified 02/10/24 11:50 Surgical - Exam Vital Signs Temp Pulse Resp BP Pulse Ox 96.8 F L 74 16 144/96 95 02/10/24 11:54 02/10/24 11:54 02/10/24 11:54 02/10/24 11:54 02/10/24 11:54 Physical exam: General: Well-developed, well-nourished HEENT: Normocephalic, sclerae nonicteric Abdomen: Nontender, nondistended Extremities: No edema Neuro: Alert and oriented Chest: Right sided Port-A-Cath in place Assessment and Plan (1) Lymphoma Narrative/Plan: Will proceed with Port-A-Cath removal at this time. Current Visit: No Status: Acute Priority: High Code(s): C85.90 - NON- HODGKIN LYMPHOMA, UNSPECIFIED, UNSPECIFIED SITE SNOMED Code(s): 338229150
[2024-02-10] MEDS: LIDOCAINE 1% INJ 10MG/ML (20 ML MDV) SQ ONE ×2 (12:55)
[2024-02-10] MEDS ORDERED: NALOXONE 0.4 MG/ML 1 ML VIAL IV PRN (13:20)
--- NOTE | 2024-02-10 13:21 | P.OP ---
Date of Procedure: 02/10/24 Procedure(s) Performed: PREOPERATIVE DIAGNOSIS: Lymphoma POSTOPERATIVE DIAGNOSIS: Same PROCEDURE: Port-A-Cath removal SURGEON: Melissa EBL: 5 cc ANESTHESIA: Sedation COMPLICATIONS: None OPERATIVE PROCEDURE: Patient was placed in the supine position. The patient was sedated per anesthesia that time. The chest was prepped and draped in the usual sterile fashion. The skin was localized with Marcaine solution. The previous incision was re-incised using a scalpel. The port was easily excised using accommodation of blunt dissection sharp dissection and electrocautery. The subcutaneous tissues were reapproximated using 3-0 Vicryl sutures. The skin was reapproximated using 4-0 Monocryl sutures. Skin glue was then applied. DISPOSITION: Stable to recovery room
[2024-02-10 13:22] VITALS: PULSE 58; RESP 18
[2024-02-10 13:37] VITALS: BP 126/80
== END 2024-02-10 13:55 | disposition home or self-care (01) ==
LOC: OR 11:21
PROVIDERS: ATTEND Surgery
DX: C83.39 Diffuse large B-cell lymphoma, extranodal and solid organ sites

== ENCOUNTER 2024-08-26 08:57 | Emergency (ER) | payer BC, MEDICARE ==
--- NOTE | 2024-08-26 09:39 | ED ---
General Adult HPI - General Chief complaint: Recheck/Abnormal Lab/Rx Stated complaint: R foot swelling Time Seen by Provider: 08/26/24 09:00 Source: patient, RN notes reviewed, old records reviewed Mode of arrival: ambulatory Limitations: no limitations - History of Present Illness Initial comments: This is a 74-year-old male who presents to the emergency department stating that between his fourth and fifth toe on both feet he is got a fungal infection and is just getting worse and he wants to know what to do. Patient denies any other symptoms. Patient denies any injury. - Related Data Home Medications Medication Instructions Recorded Confirmed Cholecalciferol [Vitamin D3 (10 400 unit PO DAILY 02/06/20 02/08/24 Mcg = 400 Iu)] Vitamin E (Dl,Tocopheryl Acet) 1,000 unit PO DAILY 02/06/20 02/08/24 [Vitamin E] Escitalopram Oxalate [Lexapro] 10 mg PO DAILY 03/04/20 02/08/24 Furosemide [Lasix] 20 mg PO DAILY 03/20/20 02/08/24 Spironolactone 25 mg PO DAILY 12/14/22 02/08/24 Tamsulosin HCl [Flomax] 0.4 mg PO HS 12/14/22 02/08/24 Omeprazole 40 mg PO DAILY 02/08/23 02/08/24 Orencia Inj.(Unknown Dose) 0 mg INJ Q30D 02/08/24 02/08/24 Previous Rx's Medication Instructions Recorded Fluconazole [Diflucan] 150 mg PO ONCE #3 tab 08/26/24 Ketoconazole 2% Cream [Nizoral 2%] 1 applic TOPICAL BID #30 gm 08/26/24 Allergies Allergy/AdvReac Type Severity Reaction Status Date / Time No Known Allergies Allergy Verified 08/26/24 09:02 Review of Systems ROS Statement: Those systems with pertinent positive or pertinent negative responses have been documented in the HPI. ROS Other: All systems not noted in ROS Statement are negative. 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 bladder cancer, prostate cancer, Radiation for prostate 2020, B cell non- hodgkin's lymphoma-currently in remission History of Any Multi-Drug Resistant Organisms: None Reported Past Surgical History: Appendectomy, Orthopedic Surgery Additional Past Surgical History / Comment(s): meniscus repair left knee, multiple large volume right side thoracentesis, colonoscopy, egd, mediport placed by Dr. Torres 03/04/23 Past Anesthesia/Blood Transfusion Reactions: No Reported Reaction Additional Past Anesthesia/Blood Transfusion Reaction / Comment(s): no blood transfusion Past Psychological History: Anxiety Smoking Status: Former smoker - Past Family History Mother Family Medical History: No Reported History Additional Family Medical History / Comment(s): pt does not know his family history General Exam - General Exam Comments Initial Comments: GENERAL Patient is well-developed and well-nourished. Patient is in mild distress. EYES Patient's pupils are equal and round. Extraocular motion is intact SKIN Unremarkable NEURO The patient is alert and oriented A&Ox3 PYSCH Patient has normal interpersonal interactions. MUSCULOSKELETAL Between the fourth and fifth toe bilaterally patient has a fungal infection. Limitations: no limitations Course Vital Signs 08/26/24 08:58 Temperature 97.8 F Pulse Rate 92 Respiratory 18 Rate Blood Pressure 147/93 O2 Sat by Pulse 95 Oximetry Medical Decision Making - Medical Decision Making Was pt. sent in by a medical professional or institution (, PA, THERMO CEMENTING FOLDER OPERATOR, urgent care, hospital, or fdc...) When possible be specific @ -No Did you speak to anyone other than the patient for history (EMS, parent, family, police, friend...)? What history was obtained from this source @ -No Did you review nursing and triage notes (agree or disagree)? Why? @ -I reviewed and agree with nursing and triage notes Were old charts reviewed (outside hosp., previous admission, EMS record, old EKG, old radiological studies, urgent care reports/EKG's, fdc records)? Report findings @ -No old charts were reviewed Differential Diagnosis? @ -Cellulitis, fungal infection, dry skin, this is not an all-inclusive list EKG interpreted by me (3pts min.). @ -As above X-rays interpreted by me (1pt min.). @ -None done CT interpreted by me (1pt min.). @ -None done U/S interpreted by me (1pt. min.). @ -None done What testing was considered but not performed or refused? (CT, X-rays, U/S, labs)? Why? @ -None What meds were considered but not given or refused? Why? @ -None Did you discuss the management of the patient with other professionals (professionals i.e. , PA, THERMO CEMENTING FOLDER OPERATOR, lab, RT, psych nurse, social worker aide, crating and moving estimator, teacher, security patrol officer, embedded case manager)? Give summary @ -No Was smoking cessation discussed for >3mins.? @ -No Was critical care preformed (if so, how long)? @ -No Were there social determinants of health that impacted care today? How? (Homelessness, low income, unemployed, alcoholism, drug addiction, transporta tion, low edu. Level, literacy, decrease access to med. care, fdc, rehab)? @ -No Was there de-escalation of care discussed even if they declined (Discuss DNR or withdrawal of care, Hospice)? DNR status @ -No What co-morbidities impacted this encounter? (DM, HTN, Smoking, COPD, CAD, Cancer, CVA, ARF, Chemo, Hep., AIDS, mental health diagnosis, sleep apnea, morbid obesity)? @ -None Was patient admitted / discharged? Hospital course, mention meds given and route, prescriptions, significant lab abnormalities, going to OR and other pertinent info. @ -Patient has been given Diflucan and will be sent home with clotrimazole cream Undiagnosed new problem with uncertain prognosis? @ -No Drug Therapy requiring intensive monitoring for toxicity (Heparin, Nitro, Insulin, Cardizem)? @ -No Were any procedures done? @ -No Diagnosis/symptom? @ -Tenia pedis Acute, or Chronic, or Acute on Chronic? @ -Acute Uncomplicated (without systemic symptoms) or Complicated (systemic symptoms)? @ -Uncomplicated Side effects of treatment? @ -No Exacerbation, Progression, or Severe Exacerbation? @ -No Poses a threat to life or bodily function? How? (Chest pain, [place], [place], pneumonia, PE, COPD, DKA, ARF, appy, cholecystitis, CVA, Diverticulitis, Homicidal, Suicidal, threat to staff... and all critical care pts) @ -No Disposition Clinical Impression: Tinea pedis Disposition: HOME SELF-CARE Condition: Good Additional Instructions: Patient should keep the area dry and clean Use the ketoconazole cream for 4 weeks even if area looks healed Prescriptions: Fluconazole [Diflucan] 150 mg PO ONCE #3 tab Ketoconazole 2% Cream [Nizoral 2%] 1 applic TOPICAL BID #30 gm Is patient prescribed a controlled substance at d/c from ED?: No Referrals: Marcos Anaya MD [Primary Care Provider] - 1-2 days Time of Disposition: 09:34
[2024-08-26 09:46] VITALS: BP 130/86; PULSE 86; RESP 20; TEMP 98
== END 2024-08-26 09:45 | disposition home or self-care (01) ==
LOC: EC 08:57
DX: B35.3 Tinea pedis (principal); Z87.891 Personal history of nicotine dependence
CPT/HCPCS: 99283

== ENCOUNTER → 2024-09-20 | Outpatient (CLI) | payer MEDICARE, BC ==
[2024-09-20 07:12] LABS: African American GFR (CKD) 64 (>60 ml/min/1.73 sqM); Blood Urea Nitrogen 26 mg/dL (9-20); Non-African American GFR(CKD) 55 (>60 ml/min/1.73 sqM)
--- NOTE | 2024-09-20 10:19 | CT ---
EXAMINATION TYPE: CT ChestAbdPelvis w con DATE OF EXAM: 09/20/2024 COMPARISON: Most recent PET CT December 23, 2023 and older studies. CLINICAL INDICATION: Male, 74 years old with history of C83.39 LYMPHOMA, LYMPHOMA, TECHNIQUE: CT scan of the thorax, abdomen and pelvis is performed with oral and with IV Contrast, patient inject ed with 80 mL of Isovue 300. CT DLP: 2167.2 mGycm. Automated Exposure Control for Dose Reduction was Utilized. FINDINGS: LUNGS: The lungs are grossly clear, there is no concerning parenchymal mass or nodule identified. T here is no pleural effusion or pneumothorax seen. The tracheobronchial tree is patent. HEART: Size within normal limits. Moderate to severe coronary artery calcification is present. MEDIASTINUM: There are no greater than 1 cm hilar or mediastinal lymph nodes. No pericardial effusi on is seen. LIVER/GB: No significant abnormality is appreciated. PANCREAS: Severe generalized atrophy. SPLEEN: No significant abnormality is seen. ADRENALS: No significant abnormality is seen. KIDNEYS: A few subcentimeter low dense lesions throughout both kidneys favor benign simple cysts. BOWEL: Oral contrast does not reach the level of the terminal ileum. No abnormal small or large bowel dilatation is seen. Diverticula in the left and sigmoid colon are present. No CT evidence for acute diverticulitis. GENITAL ORGANS: Prostate gland upper limits of normal in size. LYMPH NODES: No greater than 1cm abdominal or pelvic lymph nodes are appreciated. OSSEOUS STRUCTURES: Grade 1 retrolisthesis L4 on L5. OTHER: Small fat-containing right inguinal hernia. Small to moderate-size fat-containing umbilical he rnia redemonstrated. IMPRESSION: No suspicious new mass or adenopathy to suggest active neoplastic/lymphoma recurrence. [facility], , 09/20/2024 10:17 AM
== END | disposition home or self-care (01) ==
LOC: RADCTMAIN 06:34
PROVIDERS: ATTEND Internal Medicine Hematology & Oncology
DX: M06.9 Rheumatoid arthritis, unspecified (principal); Z71.3 Dietary counseling and surveillance; Z85.46 Personal history of malignant neoplasm of prostate
CPT/HCPCS: 82565; 84520; 71260; 74177; 36415; Q9967

== ENCOUNTER → 2024-12-04 | Outpatient (CLI) | payer MEDICARE, BC ==
--- NOTE | 2024-12-04 16:46 | US ---
EXAMINATION TYPE: US kidneys/renal and bladder DATE OF EXAM: 12/04/2024 COMPARISON: CT & US CLINICAL INDICATION: Male, 74 years old with history of C67.9 KIDNEY CANCER; Pt states h/o bladder CA TECHNIQUE: Grayscale imaging of the bilateral kidneys and urinary bladder: FINDINGS: EXAM MEASUREMENTS: Right Kidney: 11.3 x 6.1 x 5.5 cm Left Kidney: 11.0 x 4.9 x 5.1 cm No shadowing renal calculi evident. No renal cysts evident Right Kidney: No hydronephrosis or masses seen Left Kidney: No hydronephrosis or masses seen Bladder: wnl Bilateral Jets seen: No The urinary bladder is anechoic. IMPRESSION: 1. Unremarkable renal ultrasound [facility], Workstation: [facility], 12/04/2024 4:44 PM
== END | disposition home or self-care (01) ==
LOC: RADUSWWP 11-02 14:03
PROVIDERS: ATTEND Urology
DX: C67.9 Malignant neoplasm of bladder, unspecified (principal)
CPT/HCPCS: 76770